=== PATIENT | male | born 1965 | race African-American/Black ===

== ENCOUNTER 2016-08-20 16:51 | Inpatient (IN) | payer OTHER, MEDICARE ==
[~2016-08-20] VITALS: Ht 172.7 cm; Wt 76.3 kg
--- NOTE | 2016-08-20 17:00 | NUR ---
PT STATES HE IS END STAGE RENAL DISEASE. PT REPORTS HAVING CHILLS YESTERDAY AT DIALYSIS STATES HE HAD A FEVER AND THEY GAVE HIM CANCO AND CEFTAZIMIME AND TOLD HIM THAT HE HAS SEPSIS AND SENT PT TO ED BLOOD CULTURES WHERE DRAWN THERE. PT HAS BKA AMPUTATIONS AND ON HIS LEFT STUMP HE HAS A LARGE BLISTER. PT STATES HE IS ALSO A IV HEROIN USER.
--- NOTE | 2016-08-20 17:46 | NUR ---
LABS DRAWN AND SENT BY THIS MST, BLUE, SSTX2,LAV, 2 SETS OF CULTURES, 2 SEPERATE STICKS
[2016-08-20 17:58] LABS: ABSOLUTE BASOPHIL COUNT 0 /CUMM (0.0-0.2); ABSOLUTE EOSINOPHIL COUNT 0.1 /CUMM (0.0-0.7); ABSOLUTE GRANULOCYTE CT 5.2 /CUMM (1.4-6.5); ABSOLUTE LYMPH COUNT 0.9 /CUMM (1.2-3.4); ABSOLUTE MONOCYTE COUNT 0.4 /CUMM (0.10-0.60); BASOPHIL % 0.4 % (0.0-2.0); EOSINOPHIL % 1.5 % (0-5); GRANULOCYTE % 78.8 % (42.2-75.2); HEMATOCRIT 29.5 % (42-52); MEAN CORPUSCULAR HGB 28.3 PG (27.0-31.0); MEAN PLATELET VOLUME 9.2 FL (7.4-10.4); PLATELET COUNT 174 /CUMM (130-400); RBC DISTRIBUTION WIDTH 15.7 % (11.5-14.5); RED BLOOD CELL CT 3.44 /CUMM (4.70-6.10); WHITE BLOOD CELL COUNT 6.7 /CUMM (4.8-10.8)
--- NOTE | 2016-08-20 18:22 | NUR ---
CRITICAL TEST RESULTS [id number] NOAH JAMES 50 M TESTS AND RESULTS: CR 6.3 Results received and read back by: JHONATHAN DENSON Results received date and time: 08/20/161827 The following provider was notified of the results, and read the results back: CARRIE ALVAREZ Notified date and time: 08/20/16 at 1828
--- NOTE | 2016-08-20 18:35 | ED INFLUENZA/URI COMPLAINT ---
History of Present Illness General Chief Complaint: General Adult Stated Complaint: PT HAS SWELLING IN BOTH LEGS Source: patient, family, old records Exam Limitations: no limitations Allergies Coded Allergies: No Known Allergies (08/20/16) Triage Note: PT STATES HE IS END STAGE RENAL DISEASE. PT REPORTS HAVING CHILLS YESTERDAY AT DIALYSIS STATES HE HAD A FEVER AND THEY GAVE HIM CANCO AND CEFTAZIMIME AND TOLD HIM THAT HE HAS SEPSIS AND SENT PT TO ED BLOOD CULTURES WHERE DRAWN THERE. PT HAS BKA AMPUTATIONS AND ON HIS LEFT STUMP HE HAS A LARGE BLISTER. Triage Nurses Notes Reviewed? yes HPI: 50-year-old male with end-stage renal disease on dialysis in [place] Wednesday, last dialysis was yesterday, here with complaints of possible sepsis. He was at dialysis yesterday and they told him he had a fever, she states they did blood cultures and told him there that he might have sepsis. They recommended he goes to the hospital, patient declined. He states he has a IV heroin problem. He did not get a call today stating that his blood cultures were positive. He usually goes to [facility] where he gets his dialysis as well but he states that he is tired of going to that facility as he has had multiple admissions there. 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 He has a cough with production. He denies any skin surface changes or rashes. He has severe pain to his bilateral stump sites left greater than right and has small amount of swelling to the left stump site. He denies any vomiting. He went through his dialysis treatment yesterday and is scheduled for dialysis tomorrow again. Patient states that while at dialysis he received vancomycin and ceftaziedime IV (JHONATHAN HASSAN) Vital Signs & Intake/Output Vital Signs & Intake/Output Vital Signs Date Time Temp Pulse Resp B/P Pulse O2 O2 Flow FiO2 Ox Delivery Rate 08/21 0645 98.9 79 20 152/70 96 Room Air 08/21 0000 97 Room Air 08/20 2326 99.7 91 20 150/60 92 Room Air 08/20 2253 Room Air 08/20 1956 99.2 87 20 160/72 97 Room Air 08/20 1702 97.9 92 16 182/90 95 Room Air ED Intake and Output 08/21 0000 03/23 1200 Intake Total Output Total Balance Patient 185 lb Weight Reconcile Medications Amlodipine Besylate 10 MG TABLET 1 TAB PO DAILY BP (Reported) Atorvastatin Calcium 10 MG TABLET 1 TAB PO DAILY CHOLESTEROL (Reported) Calcium Acetate 667 MG TABLET 2 TAB PO TID WM KIDNEYS (Reported) Carvedilol 25 MG TABLET 1 TAB PO BID HEART/BP (Reported) Clonidine HCl 0.1 MG TABLET 1 TAB PO BID BP (Reported) Insulin Glargine,Hum.rec.anlog (Lantus Solostar) 100 UNIT/ML (3 ML) INSULN.PEN 5 UNIT SC QHS DM (Reported) Insulin Lispro (Humalog Kwikpen U-100) (Unknown Strength) INSULN.PEN (Unknown Dose) SC TIDAC/HS DM (Reported) Melatonin 3 MG TABLET 2 TAB PO QHS SLEEP (Reported) Menthol (Bengay) 5 % GEL..GRAM. 1 GOOD TOP Q12H PRN BACK PAIN (Reported) Mirtazapine 15 MG TABLET 1 TAB PO QHS MENTAL HEALTH (Reported) Omeprazole 20 MG CAPSULE.DR 1 CAP PO BID GI (Reported) Ondansetron HCl 4 MG TABLET 1 TAB PO PRN N/V (Reported) Quetiapine Fumarate (Seroquel XR) 200 MG TAB.ER.24H 1 TAB PO QPM MENTAL HEALTH /SLEEP (Reported) [RENAPLEX D] 1 TAB PO DAILY SUPPLEMENT (Reported) (JOSE PRAKASH MD) Past History Travel History Traveled to [place] past 21 day No Medical History Any Pertinent Medical History? see below for history Renal: END STAGE RENAL Musculoskeletal: bILATERAL LOWER EXTREMITY AMPUTEE, BELOW THE KNEE Endocrine: diabetes Blood Disorders: IRON DEF. ANEMIA Surgical History Surgical History: BILATERAL bka Psychosocial History What is your primary language Albanian Tobacco Use: Current Daily Use Daily Tobacco Use Amount/Type: => 5 Cigarettes daily ETOH Use: denies use Illicit Drug Use: heroin (JHONATHAN HASSAN) Family History Hx Contributory? No (JOSE PRAKASH MD) Review of Systems Review of Systems Constitutional: Reports: see HPI. EENTM: Reports: no symptoms. Respiratory: Reports: see HPI. Cardiovascular: Reports: no symptoms. GI: Reports: no symptoms. Genitourinary: Reports: no symptoms. Musculoskeletal: Reports: no symptoms. Skin: Reports: no symptoms. Neurological/Psychological: Reports: no symptoms. Hematologic/Endocrine: Reports: no symptoms. Immunologic/Allergic: Reports: no symptoms. All Other Systems: Reviewed and Negative (JHONATHAN HASSAN) Physical Exam Physical Exam Ears, Nose, Throat: LEFT EYE CHRONIC ABNORMALITY Comments: Chronically ill-appearing man HEENT: Nose is atraumatic. Dry mucous membranes Pharynx normal. No swelling or edema. Neck: Supple, no lymphadenopathy, normal range of motion without pain or tenderness Back: Nontender, no CVA tenderness. Full range of motion Cardiovascular: Regular rate and rhythms , positive systolic murmur murmurs, mildly elevated JVP Respiratory: Chest nontender. No respiratory distress. Crackles noted left base and lower lung Abdomen: Soft, nontender nondistended, no appreciable organomegaly. Normal bowel sounds. No ascites Sacral region without abscess or infection or skin breakdown Left upper extremity fistula site without signs of infection Extremity: No edema, bilateral lower extremity amputee, small amount of bursal swelling to the left distal pretibial region, no erythema. No signs of skin breakdown to the bilateral lower extremities. Neuro: Alert oriented x3, motor sensory normal, cranial nerves II through XII grossly intact. Skin: No appreciable rash on exposed skin, skin is warm and dry. Psych: Mood and affect is normal, memory and judgment is normal. (JHONATHAN HASSAN) Core Measures Severe Sepsis Present: No Septic Shock Present: No (JOSE PRAKASH MD) Progress Differential Diagnosis: influenza, meningitis, neutropenia, otitis, pneumonia, pharyngitis, sinusitis Initial ED EKG: NSR, rate (90), LVH, nonspecific ST T wave chg, abnormal Q waves Repeat EKG: unchanged Rhythm Strip: normal sinus rhythm (90 bpm) Comments: Concern for pneumonia given patient's cough and crackles at the left lower lung. We'll obtain chest x-ray and labs, blood cultures. Chest x-ray shows left lower lobe pneumonia. We'll give him vancomycin and Fortaz IV and admitted to the hospital. Also given Dilaudid IV for his chronic pain. Patient with abnormal EKG, we'll repeat an add on a troponin. Patient to be admitted to the hospitalist service. Discussed with Dr. prakash (JHONATHAN HASSAN) Plan of Care: Orders Procedure Date/time Status Consistent Carbohydrate 3 08/21 B Active EKG 08/21 2300 Active TROPONIN LEVEL 08/21 1030 Active EKG 08/21 1030 Active RAPID VIRAL INFLUENZA A 08/21 0851 Active STREP PNEUMO URINARY ANTIGEN 08/21 0732 Active LEGIONELLA URINARY ANTIGEN 08/21 0732 Active URINE DRUGS OF ABUSE 08/21 0732 Active CULTURE,URINE 08/21 0729 Active URINALYSIS 08/21 0729 Active PROTHROMBIN TIME 08/21 0729 Active VANCOMYCIN (VANCOCIN) LEVEL 08/21 0600 Complete CBC WITHOUT DIFFERENTIAL 08/21 0600 Complete BASIC ELECTROLYTES PLUS BUN&CR 08/21 0600 Complete TROPONIN LEVEL 08/21 0430 Complete EKG 08/21 0418 Active Weight 08/21 0118 Active PSYCHIATRIC CONSULT 08/21 UNK Active LOWER RESPIRATORY CULTURE 08/20 2351 Active Hemo-Dialysis 08/20 2343 Active LACTIC ACID 08/20 2338 Complete Vital Signs 08/20 2243 Active Teach/Educate 08/20 224 Active Pain Treatment and Response 08/20 2242 Active Nutritional Intake, Monitor 08/20 2242 Active Isolation 08/20 2242 Active Intake & Output 08/20 2242 Active Patient Care Conference 08/20 2242 Active Activity/Ambulation 08/20 2242 Active Saline Lock 08/20 214 Active Pathway - chart 08/20 214 Active House Staff 08/20 214 Active Intake & Output 08/20 204 Active OXYGEN SETUP (GEN) 08/20 2030 Active Saline Lock 08/20 2030 Active Admit to inpatient 08/20 203 Active Vital Signs 08/20 203 Active Activity/Ambulation 08/20 2030 Active Code Status 08/20 2030 Active Patient Data 08/20 2025 Active Add-on Test (ER Only) 08/20 1923 Active EKG 08/20 1922 Active Add-on Test (ER Only) 08/20 1831 Active EKG 08/20 1831 Active TROPONIN LEVEL 08/20 1739 Complete HIV (Reflex to HIVCQ) 08/20 1739 Complete HEPATITIS PANEL 08/20 1739 Complete GLYCOSYLATED HGB 08/20 1739 Complete WESTERGREN SED RATE 08/20 1739 Complete B-TYPE NATRIURETIC PEP (BNP) 08/20 1714 Complete BLOOD CULTURE 08/20 1712 Active COMPREHENSIVE METABOLIC PANEL 08/20 1712 Complete CBC WITHOUT DIFFERENTIAL 08/20 171 Complete Lab Add-on Test 08/20 UNK Active FingerStick- Glucose 08/20 UNK Active Current Medications Sig/Malu Start time Last Medication Dose Stop Time Status Admin Insulin Aspart 0 AT BEDTIME 08/21 2200 AC (NovoLOG) Ceftazidime 1,000 MG 2100 08/21 2100 AC (Fortaz) Atorvastatin Calcium 10 MG 1700 08/21 1700 AC (Lipitor) Vancomycin HCl 500 MG ONCE ONE 08/21 1700 AC (Vanco/Hemodialysis) 08/21 1759 Dextrose/Water 250 ML (D5W) Calcium Acetate 667 MG WM 08/21 1200 AC (PhosLo) Insulin Aspart 0 TIDAC 08/21 1200 AC (NovoLOG) Epoetin Antonio 6,000 UNIT MoWeFr PRN 08/21 1115 AC (Epogen Inj 3000 (DIALYSIS PATIENTS) Multivitamins 1 TAB DAILY 08/21 1009 AC (Nephrocaps) Vancomycin HCl 1,000 MG DAILY 08/21 1000 CAN Dextrose/Water 250 ML (D5W) Vancomycin HCl 1,000 MG DAILY 08/21 1000 CAN Dextrose/Water 250 ML (D5W) Insulin Aspart 0 TIDAC 08/21 0800 CAN (NovoLOG) Ondansetron HCl 4 MG Q6P PRN 08/20 2345 AC (Zofran) Vancomycin HCl 0 Wednesday .. 08/20 2315 AC (Vanco/Hemodialysis) Acetaminophen 650 MG Q6P PRN 08/20 2145 AC (Tylenol) Laboratory Tests 08/21/16 1124: Troponin I Pending, PT Pending, INR Pending 08/21/16 0625: CBC w Diff NO MAN DIFF REQ, RBC 3.14 L, MCV 86.9, MCH 28.7, RDW 16.0 H, MPV 9.8, Gran % 72.8, Lymphocytes % 17.5 L, Monocytes % 7.9, Eosinophils % 1.3, Basophils % 0.5, Absolute Granulocytes 4.7, Absolute Lymphocytes 1.1 L, Absolute Monocytes 0.5, Absolute Eosinophils 0.1, Absolute Basophils 0, PUBS MCHC 33.0 08/21/16 0435: Troponin I 0.04 08/21/16 0435: Anion Gap 10, Estimated GFR 9 L, BUN/Creatinine Ratio 3.8 L, Random Vancomycin 19.3 08/21/16 0018: Lactic Acid 1.3 08/20/16 1739: Txm-W-Ykoxzffples Pept 35411 H 08/20/16 1739: Anion Gap 13, Estimated GFR 9 L, BUN/Creatinine Ratio 3.3 L, Glucose 209 H, Hemoglobin A1c 10.3 H, Calcium 8.8, Total Bilirubin 0.6, AST 24, ALT 32, Alkaline Phosphatase 127 H, Troponin I 0.03, Total Protein 6.7, Albumin 3.6, Globulin 3.1, Albumin/Globulin Ratio 1.2, CBC w Diff NO MAN DIFF REQ, RBC 3.44 L, MCV 86.0, MCH 28.3, RDW 15.7 H, MPV 9.2, Gran % 78.8 H, Lymphocytes % 13.3 L, Monocytes % 6.0, Eosinophils % 1.5, Basophils % 0.4, Absolute Granulocytes 5.2, Absolute Lymphocytes 0.9 L, Absolute Monocytes 0.4, Absolute Eosinophils 0.1, Absolute Basophils 0, PUBS MCHC 33.0, ESR Westergren 66 H, Hepatitis A IgM Ab NONREACTIVE, Hep Bs Antigen NONREACTIVE, Hep B Core IgM Ab Conf NONREACTIVE, Hepatitis C Antibody NONREACTIVE, HIV 1&2 Ab Western Blot NONREACTIVE Microbiology 08/21 0903 NASOPHARYN: Influenza Virus A & B Rapid Smear - RECD 08/21 0732 URINE ROUT: Legionella Antigen - COLB 08/21 0732 URINE ROUT: Streptococcus pneumoniae Antigen (M - COLB 08/21 0729 URINE ROUT: Urine Culture - COLB 08/20 2351 LOWER RESP: Respiratory Culture - ORD 08/20 2351 LOWER RESP: Gram Stain - ORD 08/20 1739 BLOOD: Blood Culture - RECD 08/20 172 BLOOD: Blood Culture - RECD Departure Departure Disposition: STILL A PATIENT Condition: Stable Clinical Impression Primary Impression: Pneumonia Secondary Impressions: Abnormal EKG Chronic pain Qualifiers: Chronic pain type: chronic pain syndrome Qualified Code: G89.4 - Chronic pain syndrome CRI (chronic renal insufficiency) Qualifiers: Chronic kidney disease stage: unspecified stage Qualified Code: N18.9 - Chronic kidney disease, unspecified Heroin addiction Referrals: PATIENT HAS NO PRIMARY CARE DR (PCP/Family) Departure Forms: Customer Survey General Discharge Information Admission Note Spoke With: JUSTINE ANDINO,[facility] Documentation of Exam: Documentation of any treatments & extenuating circumstances including Concerns Regarding Discharge (functional status, medication knowledge or non-compliance, living conditions, etc.) that warrant an admission rather than observation: Dialysis patient end-stage renal disease with diabetes, here with left lower lobe pneumonia. Requires IV antibiotics and close monitoring. He is a poor candidate for outpatient treatment due to his significant comorbidities. He will require dialysis tomorrow as well (KIM BUTLER,JHONATHAN) PA/CHEMICAL LABORATORY CHIEF Co-Sign Statement Statement: ED Attending supervision documentation- x I saw and evaluated the patient. I have also reviewed all the pertinent lab results and diagnostic results. I agree with the findings and the plan of care as documented in the PA's/CHEMICAL LABORATORY CHIEF's documentation. [] I have reviewed the ED Record and agree with the PA's/CHEMICAL LABORATORY CHIEF's documentation. [] Additions or exceptions (if any) to the PAs/CHEMICAL LABORATORY CHIEF's note and plan are summarized below: [] (DWAIN ANDINO,JOSE)
--- NOTE | 2016-08-20 19:21 | RADIOLOGY REPORT ---
EXAMINATION: XR PORTABLE CHEST CLINICAL INFORMATION: Cough, fever COMPARISON: None TECHNIQUE: Portable frontal view of the chest was obtained. FINDINGS: There is rotation toward the right. There is tortuosity aorta. Cardiac size anita and vasculature are within normal limits. There is a patchy density at the left base with slight elevation of the left hemidiaphragm. There is no consolidation in the right lung or left upper lung. There is some left apical thickening. There is no pneumothorax or pleural fluid. IMPRESSION: Patchy left base density could represent pneumonia or atelectasis.
[2016-08-20] MEDS ORDERED: RENAPLEX D PO (19:27)
[2016-08-20] MEDS ORDERED: AMLODIPINE BESY10 M1 PO (20:06)
[2016-08-20] MEDS ORDERED: OMEPRAZOLE20 M2 PO (20:07)
[2016-08-20] MEDS ORDERED: ATORVASTATIN CA10 M1 PO (20:07)
[2016-08-20] MEDS ORDERED: CALCIUM ACETAT667 M2 PO (20:07)
[2016-08-20] MEDS ORDERED: MIRTAZAPINE15 M2 PO (20:08)
[2016-08-20] MEDS ORDERED: SEROQUEL XR200 M1 PO (20:08)
[2016-08-20] MEDS ORDERED: CARVEDILOL25 M1 PO (20:09)
[2016-08-20] MEDS ORDERED: CLONIDINE HCL0.1 MG PO (20:09)
[2016-08-20] MEDS ORDERED: LANTUS SOL100 UNIT/1 SC (20:10)
[2016-08-20] MEDS ORDERED: MELATONIN3 M4 PO (20:11)
[2016-08-20] MEDS ORDERED: BENGAY113 GM TOP (20:12)
[2016-08-20] MEDS ORDERED: ONDANSETRON HCL4 MG PO (20:14)
[2016-08-20] MEDS ORDERED: HUMALOG KW100 UNIT/1 SC (20:14)
--- NOTE | 2016-08-20 20:42 | History & Physical ---
JANICE ANDINO,JUNITOCandi 08/20/162041: General Information and HPI MD Statement: I have seen and personally examined MAGUI JAMES and documented this H&P. The patient is a 50 year old M who presented with a patient stated chief complaint of [fever and chills. Source of Information: patient, W10 Exam Limitations: no limitations History of Present Illness: This is a 50 yo male past medical history significant for ESRD, bilateral BKA secondary to diabetic complication, hyperlipidemia, hypertension, who comes in for chief complaint of fevers and chills. Patient states that he was at his routine dialysis appointment at [facility] in [place] yesterday when he was noted to have a fever up to 102 with chills. The dialysis center obtained blood cultures , administered 1 dose of vancomycin and ceftaz. They suggested that patient go to hospital for further evaluation. He declined but felt worse this morning and came to [facility]. Denies any headache, change in vision, sore throat, shortness of breath, chest pain, palpitation, diarrhea, or constipation. He does endorse some fever, cough-at times productive with green sputum, nausea, baseline anuria, and recent rash on buttock. He states the cough has been present for several weeks. He denies any other recent illness or sick contacts. He does state that about 3 months ago he was seen at [place] for drainage of an abscess on his buttock. He has noticed a cyst growing on left stump secondary to prosthesis irritation over the past six months. Patient denies use of any IV drugs but does snort heroin on a daily basis. Last use of heroin yesterday. Additionally he is a smoker, denies alcohol use. He has been seen at [place] several times for heroin withdrawal and detox. Note ALL previous visits at [place], this is his first time at [place]. Patient states that around two weeks ago he required fistulogram for problem with dialysis access. He states he had no problems with dialysis yesterday. Further details unclear at present. Allergies/Medications Allergies: Coded Allergies: No Known Allergies (08/20/16) Home Med list Amlodipine Besylate 10 MG TABLET 1 TAB PO DAILY BP (Reported) Atorvastatin Calcium 10 MG TABLET 1 TAB PO DAILY CHOLESTEROL (Reported) Calcium Acetate 667 MG TABLET 2 TAB PO TID WM KIDNEYS (Reported) Carvedilol 25 MG TABLET 1 TAB PO BID HEART/BP (Reported) Clonidine HCl 0.1 MG TABLET 1 TAB PO BID BP (Reported) Insulin Glargine,Hum.rec.anlog (Lantus Solostar) 100 UNIT/ML (3 ML) INSULN.PEN 5 UNIT SC QHS DM (Reported) Insulin Lispro (Humalog Kwikpen U-100) (Unknown Strength) INSULN.PEN (Unknown Dose) SC TIDAC/HS DM (Reported) Melatonin 3 MG TABLET 2 TAB PO QHS SLEEP (Reported) Menthol (Bengay) 5 % GEL..GRAM. 1 GOOD TOP Q12H PRN BACK PAIN (Reported) Mirtazapine 15 MG TABLET 1 TAB PO QHS MENTAL HEALTH (Reported) Omeprazole 20 MG CAPSULE.DR 1 CAP PO BID GI (Reported) Ondansetron HCl 4 MG TABLET 1 TAB PO PRN N/V (Reported) Quetiapine Fumarate (Seroquel XR) 200 MG TAB.ER.24H 1 TAB PO QPM MENTAL HEALTH /SLEEP (Reported) [RENAPLEX D] 1 TAB PO DAILY SUPPLEMENT (Reported) Compliance With Home Meds: UNKNOWN Past History Travel History Traveled to [place] past 21 day No Medical History Renal: END STAGE RENAL Musculoskeletal: bILATERAL LOWER EXTREMITY AMPUTEE, BELOW THE KNEE Endocrine: diabetes Blood Disorders: IRON DEF. ANEMIA Surgical History Surgical History: BILATERAL bka Past Family/Social History Psychosocial History Smoking Status: Current Everyday Smoker ETOH Use: denies use Illicit Drug Use: heroin Functional Ability ADLs Independent: dressing, eating, toileting, bathing. Ambulation: prosthesis IADLs Independent: shopping, housework, finances, food prep, telephone, transportation , medication admin. Review of Systems Review of Systems Constitutional: Reports: chills, fever, malaise, weakness. Denies: diaphoresis. EENTM: Reports: blurred vision, double vision. Denies: eye pain, ear pain, nasal pain, throat pain. Cardiovascular: Denies: chest pain, edema, palpitations, syncope. Respiratory: Reports: cough, sputum production. Denies: orthopnea, short of breath, wheezing. GI: Reports: no symptoms. Genitourinary: Reports: no symptoms. Musculoskeletal: Reports: joint pain, muscle pain. Skin: Reports: erythema, lesions. Exam & Diagnostic Data Last 24 Hrs of Vital Signs/I&O Vital Signs Date Time Temp Pulse Resp B/P Pulse O2 O2 Flow FiO2 Ox Delivery Rate 08/21 0000 97 Room Air 08/20 2327 99.7 91 20 150/60 92 Room Air 08/20 2253 Room Air 08/20 1957 99.2 87 20 160/72 97 Room Air 08/20 1702 97.9 92 16 182/90 95 Room Air Intake & Output 08/21 0800 08/21 0000 08/20 1600 Intake Total Output Total Balance Patient 83.915 kg Weight Physical Exam General Appearance Alert, Oriented X3, Cooperative, No Acute Distress Skin No Rashes HEENT Atraumatic, PERRLA, EOMI, R. eye with haziness likely cataracts. Neck Supple Cardiovascular Regular Rate, Normal S1, Normal S2, 2/6 murmur Lungs Clear to Auscultation, decreased air movement; no wheezes, rhonchi, no crackles. Abdomen Soft, No Tenderness Neurological Normal Speech, Cranial Nerves 3-12 NL Extremities No Clubbing, No Cyanosis, No Edema, Normal Pulses, LLE stump with 5cm cyst with chronic keratosis. Tender to palpation. No erythema, purulence or warmth noted., diminished thrill to palpation to fistula in l. arm, but thrill appreciated on auscultation. Last 24 Hrs of Labs/Arpit: Laboratory Tests 08/21/16 0018: Lactic Acid 1.3 08/20/16 1739: [place]evvw Pept 55383 H 08/20/16 1739: Anion Gap 13, Estimated GFR 9 L, BUN/Creatinine Ratio 3.3 L, Glucose 209 H, Hemoglobin A1c Pending, Calcium 8.8, Total Bilirubin 0.6, AST 24, ALT 32, Alkaline Phosphatase 127 H, Troponin I 0.03, Total Protein 6.7, Albumin 3.6, Globulin 3.1, Albumin/Globulin Ratio 1.2, CBC w Diff NO MAN DIFF REQ, RBC 3.44 L, MCV 86.0, MCH 28.3, RDW 15.7 H, MPV 9.2, Gran % 78.8 H, Lymphocytes % 13.3 L, Monocytes % 6.0, Eosinophils % 1.5, Basophils % 0.4, Absolute Granulocytes 5.2, Absolute Lymphocytes 0.9 L, Absolute Monocytes 0.4, Absolute Eosinophils 0.1, Absolute Basophils 0, PUBS MCHC 33.0, ESR Westergren 66 H, Hepatitis A IgM Ab Pending, Hep Bs Antigen Pending, Hep B Core IgM Ab Conf Pending, Hepatitis C Antibody Pending, HIV 1&2 Ab Western Blot NONREACTIVE Microbiology 08/20 2351 LOWER RESP: Respiratory Culture - ORD 08/20 2351 LOWER RESP: Gram Stain - ORD 08/20 173 BLOOD: Blood Culture - RECD 08/20 1728 BLOOD: Blood Culture - RECD Assessment/Plan Assessment: This is a 50 yo male w/ PMH of ESRD, bilat bka, resistant htn, hld, who presents with CC fever, chills and cough. He has hx notable for opioid addiction. ED work up shows Chest x-ray shows patchy L. density. Vitals: 99.2, 87, 20, 182/90, 95. CBC shows white count 6.7, hemoglobin 9.7, hematocrit 29.5. EKG shows T-wave inversion in anterolateral leads and some Q waves in 1-3 and aVF. No previous EKG for correlation. BUN 21, creatinine 6.3. PLAN: Fever and chills: Patient does not have any white count and hospital he has a temperature of 99.2. However he already received a dose of vancomycin and ceftaz edema yesterday. Denies any other symptoms other than cough. Chest x- ray shows patchy left density, suggestive of pneumonia. However, cannot rule out any other sources. Pt denies any IVDA, he does have a cat that has left several scratches in arm and chest. * Obtain results of blood culture drawn at [facility] in [place] prior to antibiotic administration * Vancomycin and ceftaz * Blood and sputum culture * [place] [facility] * Consider MRI EKG changes: Patient has some Q waves in 1-3 and aVF; T-wave inversions in anterolateral leads. First troponin negative. Continue to monitor to rule out ACS. * Troponin/EKG ESRD: * Nephro consult * Due for dialysis tomorrow * Renally dose all medications Opioid dependence: * Rapid methadone taper * Psych consult Diabetes: * Fingersticks * RIS S * Levemir * NovoLog sliding scale * Check A1c Full code Renal diet Chemical DVT prophylaxis As Ranked By This Provider Problem List: 1. Pneumonia 2. Heroin addiction 3. Abnormal EKG Core Measures/Miscellaneous Acute Coronary Syndrome ACS Diagnosis: No Cerebrovascular Accident CVA/TIA Diagnosis: No Congestive Heart Failure CHF Diagnosis: No Venous Thromboembolism VTE Risk Factors: Acute medical illness, Age > 40 [facility] prophylaxis d/t: No contraindications No VTE Pharm Prophylaxis d/t: No contraindications VTE Diagnosis: No VTE Type: NONE VTE Confirmed by (Test): NONE Severe Sepsis Severe Sepsis Present: No Septic Shock Septic Shock Present: No Miscellaneous Documentation Attending Case Discussed With: JUSTINE ANDINO,[facility] Primary Care Physician: PATIENT HAS NO PRIMARY CARE DR Patient sees these Specialists unknown Level of Patient Care: General Medicine JOYCELYN ANDINO,[facility] 08/20/16 2353: Resident Review Statement Resident Statement: examined this patient, discussed with commissioner of internal revenue, agreed with commissioner of internal revenue, discussed with family, reviewed EMR data (avail), discussed with nursing , discussed with case mgmt, reviewed images, amended to note Other Findings: Magui is a 50 year old black man with medical hx of end-stage renal disease on hemodialysis (Wednesday), AOCD & LAITH, 2* Hyperparathyroidism, type 2 diabetes, diabetic retinopathy, hx of diabetic ulcer and b/l BKAs, HLD, hx of opioid and opiate use (free bases; denies IVDA), hypertension, buttocks abscess s/p ID 2-3 months ago, tobacco smoker who presents with 2-3 days of malaise, and 24 hours of subjective chills. He was undergoing dialysis at [facility] when he was found to be febrile (TMAX 102*F), blood cx were drawn at dialysis center, and he was given Vancomycin & Ceftaz x 1. He was advised to get admitted at [facility] (where he gets all of his medical care) but he refused. Today he notes a temp of 101*F at home, continues to feel unwell and now seeking medical tx. He endorses a productive cough with green sputum for months now, and chronic intermittent chest discomfort that appears to be atypical/noncardiac, nausea without emesis. He also said he has a blister on the LLE stump. He recently had an arteriogram of his AV fistula because there was a distal occlusion. It was accessed more proximally for HD on WED. VS afebrile, BP 150/60, SaO2 92-97% RA. AAOx3. +S1/S2 RRR, Coarse and rhoncherous breathe sounds, +BSx4q Soft NT ND abdomen, B/L BKAs noted. There isn 't a blister on the LLE stump but there is a soft mass that appears to contain a fluid collection. Labs 9.7/29.5 MCV 86. Alk phos 127, BNP 42,700. EKG: TWI in anterolateral leads, pathologic Qwaves leads I,II,III,aVF Suspect sepsis, unknown source but possiblities include pneumonia, suspicious fluctuant mass on LLE stump. He is almost anuric, making small amounts of urine intermittently - we will try to get a culture. He also has TWIs and Qwave abnormalities in leads mentioned above but no symptoms at this time. He is an advanced diabetic which makes him prone to silent infarction. Additionally, this man is a smoker, and abuses opioides/opiates, but denies IVDA. 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 for QT prolongation Cont HD Nephrology consult Methadone 20mg x 1, with 20 percent per day as an inpatient Psych consultation Levemir 3U bid Novolog s/s covg Check Hba1c Obtain records from [facility] and [facility] Re: blood cx DVT ppx heparin FULL code JUSTINE ANDINO, [facility] 08/21/16 0025: Attending MD Review Statement Attending Statement Attending MD Statement: examined this patient, discuss w/resident/PA/CERTIFIED PROFESSIONAL CONTROLLER, agreed w/resident/PA/CERTIFIED PROFESSIONAL CONTROLLER Attending Assessment/Plan: 50 yo M smoker, with h/o ESRD on HD (M/W/F), anemia in chronic disease, HTN, T2DM with nephropathy, retinopathy and neuropathy, s/p bilateral BKAs for diabetic foot ulcers, ongoing heroin use (snorts, not IV), who gets most of his care at [facility], presents with productive cough, congestion and malaise. At dialysis yesterday (07/22), he was noted to have a fever of 102 with chills, blood cultures were drawn and IV Vanco-ceftaz was given, he was advised admission but he refused. Of note, about 2-3 months back he has had I and D done for a buttock abscess. VSS. Exam: dry mucous membranes, Chest left basilar rhonchi++, otherwise clear. Left arm AV fistula+. He has a chronic well circumscribed soft to firm swelling over anterior aspect of the left stump. Labs microcytic anemia, BUN/ creat 21/ 6.3, lactic acid normal, trop neg, proBNP 42,700. CXR: patchy left base density. EKG: SR, with TWI in V4-6, I, aVF (no old EKG to compare). 1. Left lower lobe pneumonia, likely HCAP (given recent multiple hospitalizations @ [place]). He is not in florid sepsis. GM admit, TRC nebs, panculture, urine legionella and strep Ag, continue IV ceftaz and dose vanco with dialysis, narrow abx based on response. Smoking cessation counseling, nicotine patch. Check urine tox screen (patient makes small amount of urine) and UA/UC. He has well circumscribed swelling over anterior aspect of left BKA stump. This does not look infected. Xray is not suspicious for osteomyelitis. Consider ultrasound of the stump to better assess this swelling/ collection. 2. Opiate abuse, requesting detox. Will do methadone taper, obtain Psych consult. 3. EKG changes, unclear if new (no EKG to compare). Serial EKG and troponin. Please obtain records from [facility], if no recent echo, consider doing an echo here. 4. ESRD on dialysis. Nephro consult for dialysis in AM. 5. T2DM. Accucheks, check HbA1c, lantus and novolog SS. 6. HTN. Ct. Amlodipine, carvedilol, clonidine. DVT ppx Hep SC. Full code.
--- NOTE | 2016-08-20 21:32 | NUR ---
PT BED ASSIGNMENT 224-2
--- NOTE | 2016-08-20 21:49 | NUR ---
MESSAGE LEFT WITH TRANSPORT.
--- NOTE | 2016-08-20 21:49 | NUR ---
REPORT TO WILMER ROBLES
--- NOTE | 2016-08-20 23:07 | NUR ---
PT ARRIVED TO FLOOR AT 2245 VIA STRETCHER FROM ER. PT A/V/OX3. ON RA. NO DISTRESS NOTED. +BS. BLOOD SUGAR 418. HOOP BENDER TANK NOTIFIED. PT C/O PAIN 01/07 TO L STUMP WHERE A BLISTER IS PRESENT. SKIN INTACT. VSS. TEMP 99.7. #24 TO RH FLUSHING EASILY. BKA. PT BROUGHT PROSTHETIC LEGS TO HOSPITAL & CANE. PT STATES HE IS IND AT HOME WITH PROSTHESES AND CANE. PT HAS HISTORY OF FALLS & SCORES FOR FALL RISK. FALL RISK BRACELT IN PLACE WELL SIGN. BED ALARM UNDER PT. PT INSTRUCTED TO CALL FOR HELP. PT ORIENTED TO ROOM, CALL PADILLA, & SURROUNDINGS. WILL CONTINUE TO MONITOR.
--- NOTE | 2016-08-20 23:20 | Admission Certification ---
Admission Certification Certification Statement - As attending physician, I certify that at the time of - admission, based on clinical presentation, severity of - symptoms, need for further diagnostic testing and - therapeutic interventions, and risk of adverse outcomes - without in-hospital treatment, in my clinical assessment, - this patient requires an acute hospital stay for a minimum - of two nights or longer. I have also considered psychsocial - factors such as support system, advanced age, financial - issues, cognitive issues, and failed out-patient treatments, - past re-admission history, safety of patient, and lack of - compliance as applicable. Specific rationale supporting this admission is: Left lower lobe pneumonia. Poorly controlled diabetes.
[2016-08-20 23:27] VITALS: BP 150/60
--- NOTE | 2016-08-20 23:30 | RADIOLOGY REPORT ---
EXAMINATION: XR KNEE, LEFT CLINICAL INFORMATION: Osteomyelitis versus abscess. Swelling left extremity status post below-knee amputation COMPARISON: None TECHNIQUE: Four views of the left knee. FINDINGS: Status post below-knee amputation. No focal bone lesion or periosteal reaction. No bone destruction. No air in the soft tissue. No radiographic evidence for osteomyelitis. There are surgical clips at the amputation site. There is vascular calcifications in the upper calf. IMPRESSION: Status post below-knee amputation. No radiographic evidence for osteomyelitis.
--- NOTE | 2016-08-21 | NUR ---
PT HAS LAC AV SHUNT. RESTRICTED ARM SIGN IN PLACE & WRISTBAND. WILL CONTINUE TO MONITOR.
--- NOTE | 2016-08-21 00:16 | NUR ---
PTS BLOOD GLUCOSE 418. WHEN THIS RN WENT TO ADMINISTER PTS NOVOLOG OF 10 UNITS PER SLIDING SCALE, PT STATED "I NEVER TAKE THAT MANY UNITS, YOU ARE TRYING TO OVERDOSE ME & PUT ME IN A COMA". PT EDUCATED THAT BLOOD GLUCOSE IS HIGH AND SHORT ACTING INSULIN IS NEEDED. PT AGREED TO TAKE THE 3 UNITS OF LEVEMIR PER EMAR. OFFSET MACHINE OPERATOR GENNA NOTIFIED. NOVOLOG HELD. PT REFUSED. WILL CONTINUE TO MONITOR.
--- NOTE | 2016-08-21 01:32 | NUR ---
IN REGARDING TO JUAREZ GUILLEN'S PREVIOUS NOTES: PATIENT WAS ASKED HOW MUCH INSULIN HE WOULD TAKE AT HOME FOR A BLOOD SUGAR OF 418. PATIENT LOOKED AT HIS SLIDING SCALE ON HIS PHONE AND IT SAID "9 UNITS." PATIENT THEREAFTER AGREED TO TAKE THE 10 UNITS OF INSULIN ORDERED BY MD. WILL CONTINUE TO CLOSELY MONITOR.
[2016-08-21 06:45] VITALS: BP 152/70
--- NOTE | 2016-08-21 07:19 | PN- Housestaff ---
See Addendum RAFAEL ANDINO,[facility] 08/21/16 0719: Subjective Follow-up For: -Healthcare associated pneumonia -End stage renal disease on dialysis -Diabetes mellitus -Hypertension Subjective: Patient was seen and examined this morning, patient reported productive cough that started 1 week ago, greenish sputum, denied blood, associated with chills, night sweats, denied fever. Patient also reported left side chest pain, aching in nature 12/07, not radiated to left arm or neck, not associated with shortness of breath or palpitation. Vital signs are stable, MAXIMUM TEMPERATURE 99.7, fasting blood glucose 102. No overnight events reported by the nurse or the patient. Today is due for hemodialysis. Review of Systems Constitutional: Reports: see HPI. Objective Last 24 Hrs of Vital Signs/I&O Vital Signs Date Time Temp Pulse Resp B/P Pulse O2 O2 Flow FiO2 Ox Delivery Rate 08/21 0645 98.9 79 20 152/70 96 Room Air 08/21 0000 97 Room Air 08/20 2327 99.7 91 20 150/60 92 Room Air 08/20 2253 Room Air 08/20 1957 99.2 87 20 160/72 97 Room Air 08/20 1702 97.9 92 16 182/90 95 Room Air Intake & Output 08/21 1600 08/21 0800 08/21 0000 Intake Total 660 Output Total Balance 660 Intake, Oral 660 Patient 83.915 kg Weight Physical Exam General Appearance: Alert, Oriented X3, Cooperative, No Acute Distress Skin: No Rashes, No Breakdown, No Significant Lesion HEENT: Atraumatic, PERRLA, EOMI, Mucous Membr. moist/pink Neck: Supple, No JVD Cardiovascular: Regular Rate, Normal S1, Normal S2, No Murmurs Lungs: bilateral diffuse ronchi , tenderness on palpation Abdomen: Normal Bowel Sounds, Soft, No Tenderness, No Masses Neurological: Normal Speech, Strength at 5/5 X4 Ext, Normal Tone, Sensation Intact, Cranial Nerves 3-12 NL, Reflexes 2+ Extremities: No Clubbing, No Cyanosis, No Edema, Normal Pulses Assessment/Plan Assessment: Mr. Doll is 50 year old male with past medical history significant for end- stage renal disease on dialysis, bilateral below knee amputation due to diabetic foot ulcers, hypertension, diabetes mellitus, hyperlipidemia, peripheral neuropathy, heroin abuse(sniffing, no IV) who presented on 08/20/16 with chief complaint of fever, chills, productive cough of green sputum. Chest x-ray 08/20/16 FINDINGS: There is tortuosity aorta. Cardiac size anita and vasculature are within normal limits. There is a patchy density at the left base with slight elevation of the left hemidiaphragm. There is no consolidation in the right lung or left upper lung. There is some left apical thickening. There is no pneumothorax or pleural fluid. IMPRESSION: Patchy left base density could represent pneumonia or atelectasis. Problem list #Healthcare associated pneumonia -Patient presented with history of fever and chills Fever and chills for the last 2 days, patient received a dose of ceftazidime and vancomycin after his dialysis on Saturday 08/[address] [facility] in [place], blood culture was obtained at that time that grew gram-positive cocci in cluster. -On admission MAXIMUM TEMPERATURE of 99.2, rest of vital signs are stable, white blood cell 6.7 -Chest x-ray is suggestive for pneumonia -Continue vancomycin and ceftaz with dialysis Day #3 -Follow-up blood culture -Follow up sputum culture pending receipt -Follow up urine Legionella and strep antigen pending receipt (patient makes very small amount of urine) -Follow up flu rapid test -Start Mucinex #Acute coronary disease -Patient reported left achy chest pain, not radiated to arm or neck, not associated with shortness of breath or palpitation -Fist EKG showed some Q waves changes -Repeated EKG and troponin are negative -Chest pain is reproducible mostly muscular in origin #ESRD on dialysis -Dialysis schedule Wednesday, Wednesday and Wednesday, last dialysis was Wednesday -Nephro consult was obtained, thanks for recommendation -Patient is for dialysis today -Continue Depakote and alpha 6000 unit with dialysis -Continue Nephrocaps 1 tab by mouth daily #Opioid dependence: -Patient reported history of heroin abuse daily sniffing, denied IV use -HIV negative -Hepatic panel negative -Rapid methadone taper, patient received 1 dose of methadone 20 mg at 12 AM 08/21 -Psych consult is still pending -Urine toxicology pending receipt -Nicotine patch 21 mg -Patient is on other psych medication, Seroquel 200 mg at bedtime, mirtazapine 15 mg at bedtime #Diabetes: -Continue Accu check -Medium dose sliding scale -Levemir 3 units twice a day #Hypertension and hyperlipidemia -Continue atorvastatin 10 mg by mouth daily -Continue clonidine 0.1 mg twice a day by mouth -Continue carvedilol 25 mg by mouth twice a day -Continue Norvasc sac 10 mg by mouth daily #GERD -Continue omeprazole 20 mg twice a day Code Full Diet Renal dialysis DVT prophylaxis heparin subcutaneous Consultation nephrology and psychiatric Problem List: 1. Pneumonia 2. End stage renal disease on dialysis 3. Opioid abuse Pain Ratin Pain Location: None Pain Goal: Pain 4 or less Pain Plan: Mild pain pathway Tomorrow's Labs & Rationales: None ESSIE ANDINO,FREDERIC 08/21/16 1124: Attending MD Review Statement Attending Statement Attending MD Statement: examined this patient, discuss w/resident/PA/NEW ACCOUNTS BANKING REPRESENTATIVE, agreed w/resident/PA/NEW ACCOUNTS BANKING REPRESENTATIVE, reviewed EMR data (avail), discussed with nursing, discussed with case mgmt, reviewed images Attending Assessment/Plan: 50-year-old male who gets all his care at [facility]. He has underlying hypertension, diabetes, nephropathy and neuropathy and has bilateral BKA's with a blister on the left stump. He also has ESRD on hemodialysis Wednesday, Wednesday , Wednesday and he is here with a fever chills and likely MRSA and/or gram-negative pneumonia. The flu swab was sent and is pending. We have him on Vanco and ceftaz to treat MRSA and gram negatives. He is on dialysis protocol so his next dose will be only after dialysis today. He admits to snorting heroin and we have him on by mouth methadone for the same. Psych is going to see him to help us out with that. He had uncontrolled diabetes when he came in and we have him on a insulin sliding scale with long-acting insulin and will closely follow up.
[2016-08-21 07:53] LABS: ABSOLUTE BASOPHIL COUNT 0 /CUMM (0.0-0.2); ABSOLUTE EOSINOPHIL COUNT 0.1 /CUMM (0.0-0.7); ABSOLUTE GRANULOCYTE CT 4.7 /CUMM (1.4-6.5); ABSOLUTE LYMPH COUNT 1.1 /CUMM (1.2-3.4); ABSOLUTE MONOCYTE COUNT 0.5 /CUMM (0.10-0.60); BASOPHIL % 0.5 % (0.0-2.0); EOSINOPHIL % 1.3 % (0-5); GRANULOCYTE % 72.8 % (42.2-75.2); HEMATOCRIT 27.3 % (42-52); MEAN CORPUSCULAR HGB 28.7 PG (27.0-31.0); MEAN CORPUSCULAR VOLUME 86.9 FL (80.0-94.0); MEAN PLATELET VOLUME 9.8 FL (7.4-10.4); PLATELET COUNT 156 /CUMM (130-400); RED BLOOD CELL CT 3.14 /CUMM (4.70-6.10); WHITE BLOOD CELL COUNT 6.4 /CUMM (4.8-10.8)
--- NOTE | 2016-08-21 09:15 | Cons- Nephrology ---
General Information and HPI Consulting Request Date of Consult: 08/21/16 Requested By: JUSTINE ANDINO,VINICIUS Reason for Consult: ESRD Source of Information: patient, old records Exam Limitations: no limitations History of Present Illness: 50 yr old AA male w mult med problems including DM, HTN, PVD s/p bilat BKAs, & ESRD on chronic HD admit last night w hx cough productive green sputum, fever, & L sided CP. Found L sided pulm infiltrate --> already covered w IV Vanco & Fortaz as outpt after last HD [facility] & continued here. intermediate smoker & c/o mild SOB. Vomited x 2-3 pre admit w/o diarrhea or abd pain. No preceding URI sx. Admits to nasal heroin but denies IV drug abuse. Has TAY AVG w/o recent issue. Allergies/Medications Allergies: Coded Allergies: No Known Allergies (08/20/16) Home Med List: Amlodipine Besylate 10 MG TABLET 1 TAB PO DAILY BP (Reported) Atorvastatin Calcium 10 MG TABLET 1 TAB PO DAILY CHOLESTEROL (Reported) Calcium Acetate 667 MG TABLET 2 TAB PO TID WM KIDNEYS (Reported) Carvedilol 25 MG TABLET 1 TAB PO BID HEART/BP (Reported) Clonidine HCl 0.1 MG TABLET 1 TAB PO BID BP (Reported) Insulin Glargine,Hum.rec.anlog (Lantus Solostar) 100 UNIT/ML (3 ML) INSULN.PEN 5 UNIT SC QHS DM (Reported) Insulin Lispro (Humalog Kwikpen U-100) (Unknown Strength) INSULN.PEN (Unknown Dose) SC TIDAC/HS DM (Reported) Melatonin 3 MG TABLET 2 TAB PO QHS SLEEP (Reported) Menthol (Bengay) 5 % GEL..GRAM. 1 OGOD TOP Q12H PRN BACK PAIN (Reported) Mirtazapine 15 MG TABLET 1 TAB PO QHS MENTAL HEALTH (Reported) Omeprazole 20 MG CAPSULE.DR 1 CAP PO BID GI (Reported) Ondansetron HCl 4 MG TABLET 1 TAB PO PRN N/V (Reported) Quetiapine Fumarate (Seroquel XR) 200 MG TAB.ER.24H 1 TAB PO QPM MENTAL HEALTH /SLEEP (Reported) [RENAPLEX D] 1 TAB PO DAILY SUPPLEMENT (Reported) Current Medications: Current Medications Sig/Malu Start time Last Medication Dose Route Stop Time Status Admin Acetaminophen 650 MG Q6P PRN 08/20 2145 AC PO Amlodipine Besylate 10 MG DAILY 08/21 1000 AC PO Atorvastatin Calcium 10 MG 1700 08/21 1700 AC PO Calcium Acetate 667 MG WM 08/21 1200 UNVr PO Carvedilol 25 MG BID 08/21 1000 AC PO Ceftazidime 1,000 MG 2100 08/21 2100 AC IV Ceftazidime 0 .STK-MED ONE 08/20 2005 DC .ROUTE Ceftazidime 500 MG ONCE ONE 08/20 1930 DC 08/20 IV 08/20 1930 2005 Clonidine 0.1 MG BID 08/21 1000 AC PO Heparin Sodium 5,000 UNIT Q8 08/20 2200 AC 08/21 (Porcine) SC 0506 Hydromorphone HCl 0 .STK-MED ONE 08/20 2004 DC .ROUTE Hydromorphone HCl 1 MG ONCE ONE 08/20 1930 DC 08/20 IV 08/20 1930 2005 Insulin Aspart 0 TIDAC 08/21 0800 DC SC Insulin Aspart 0 TIDAC 08/21 0800 CAN SC Insulin Aspart 0 TIDAC/HS 08/21 0800 DC SC Insulin Aspart 0 TIDAC/HS 08/21 0015 AC 08/21 SC 0027 Insulin Detemir 3 UNITS BID 08/20 2200 AC 08/21 SC 0009 Melatonin 6 MG AT BEDTIME 08/20 2345 AC 08/21 PO 0010 Methadone HCl 20 MG .STK-MED ONE 08/21 0002 DC PO 08/21 0003 Methadone HCl 20 MG ONCE ONE 08/20 2330 DC 08/21 PO 08/20 2331 0010 Mirtazapine 15 MG AT BEDTIME 08/20 2345 AC 08/21 PO 0022 Nicotine 21 MG DAILY 08/21 1000 AC TOP Omeprazole 20 MG .STK-MED ONE 08/21 0002 DC PO 08/21 0003 Omeprazole 20 MG 0700,1600 08/20 2334 AC 08/21 PO 0506 Ondansetron HCl 4 MG Q6P PRN 08/20 2345 AC IV Quetiapine Fumarate 200 MG AT BEDTIME 08/21 0015 AC 08/21 PO 0022 Vancomycin HCl 500 MG ONCE ONE 08/21 1700 AC Dextrose/Water 250 ML IV 08/21 1759 Vancomycin HCl 1,000 MG DAILY 08/21 1000 CAN Dextrose/Water 250 ML IV Vancomycin HCl 1,000 MG DAILY 08/21 1000 CAN Dextrose/Water 250 ML IV Vancomycin HCl 0 Wednesday .. 08/20 2315 IV Vancomycin HCl 0 .STK-MED ONE 08/20 2005 DC .ROUTE Vancomycin HCl 1,000 MG ONCE ONE 08/20 1929 DC 08/20 Dextrose/Water 250 ML IV 08/20 Review of Systems Review of Systems Constitutional: Reports: chills, fever. EENTM: Reports: no symptoms. Cardiovascular: Reports: chest pain. Respiratory: Reports: cough, short of breath, sputum production. GI: Reports: vomiting. Musculoskeletal: Reports: no symptoms. Neurological/Psychological: Reports: no symptoms. Hematologic/Endocrine: Reports: no symptoms. Immunologic/Allergic: Reports: no symptoms. All Other Systems: Reviewed and Negative Past History Travel History Traveled to [place] past 21 day No Medical History Blood Transfusion Hx: No Neurological: NONE EENT: NONE Cardiovascular: hypertension, hyperlipidemia, myocardial infarction Respiratory: NONE Gastrointestinal: GERD Hepatic: NONE Renal: END STAGE RENAL Musculoskeletal: bILATERAL LOWER EXTREMITY AMPUTEE, BELOW THE KNEE Psychiatric: anxiety, depression, IV drug abuse, substance abuse Endocrine: diabetes Blood Disorders: IRON DEF. 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 Home Smoking Status: Current Everyday Smoker ETOH Use: denies use Illicit Drug Use: heroin Functional Ability ADLs Independent: dressing, eating, toileting, bathing. Ambulation: prosthesis IADLs Independent: shopping, housework, finances, food prep, telephone, transportation , medication admin. Exam & Diagnostic Data Vital Signs and I&O Vital Signs Date Time Temp Pulse Resp B/P Pulse O2 O2 Flow FiO2 Ox Delivery Rate 08/21 0645 98.9 79 20 152/70 96 Room Air 08/21 0000 97 Room Air 08/20 2326 99.7 91 20 150/60 92 Room Air 08/203 Room Air 08/20 1956 99.2 87 20 160/72 97 Room Air 08/20 1702 97.9 92 16 182/90 95 Room Air Intake & Output 08/21 1600 08/21 0400 08/20 1600 08/20 0400 08/19 1600 08/19 0400 Intake Total 660 Output Total Balance 660 Intake, Oral 660 Patient 185 lb Weight Physical Exam General Appearance: well developed/nourished, no apparent distress, alert Head: atraumatic, normal appearance Ears, Nose, Throat: normal ENT inspection Neck: normal inspection, supple Respiratory: chest non-tender, no respiratory distress, quiet respiration, crackles (L base) Cardiovascular: regular rate/rhythm, friction rub (none heard) Gastrointestinal: soft, non-tender, no organomegaly Back: normal inspection Extremities: bilat BKA, TAY AVG + bruit - no infection Neurologic/Psych: no motor/sensory deficits, awake, alert, oriented x 3, mma fighter II- XII nml as tested Skin: intact, normal color, warm/dry Lymphatic: no anterior cervical quinton, no axillary adenopathy Results Pertinent Lab Results: Laboratory Tests 08/21 08/21 08/21 08/21 0625 0435 0435 0018 Chemistry Sodium (137 - 145 mmol/L) 135 L Potassium (3.5 - 5.1 mmol/L) 3.8 Chloride (98 - 107 mmol/L) 99 Carbon Dioxide (22 - 30 mmol/L) 27 Anion Gap (5 - 16) 10 BUN (9 - 20 mg/dL) 26 H Creatinine (0.7 - 1.2 mg/dL) 6.9 *H Estimated GFR (>60 ml/min) 9 L BUN/Creatinine Ratio (7 - 25 %) 3.8 L Lactic Acid (0.7 - 2.1 mmol/L) 1.3 Troponin I (<0.11 ng/ml) 0.04 Hematology CBC w Diff NO MAN DIFF REQ WBC (4.8 - 10.8 /CUMM) 6.4 RBC (4.70 - 6.10 /CUMM) 3.14 L Hgb (14.0 - 18.0 G/DL) 9.0 L Hct (42 - 52 %) 27.3 L MCV (80.0 - 94.0 FL) 86.9 MCH (27.0 - 31.0 PG) 28.7 RDW (11.5 - 14.5 %) 16.0 H Plt Count (130 - 400 /CUMM) 156 MPV (7.4 - 10.4 FL) 9.8 Gran % (42.2 - 75.2 %) 72.8 Lymphocytes % (20.5 - 51.1 %) 17.5 L Monocytes % (1.7 - 9.3 %) 7.9 Eosinophils % (0 - 5 %) 1.3 Basophils % (0.0 - 2.0 %) 0.5 Absolute Granulocytes (1.4 - 6.5 /CUMM) 4.7 Absolute Lymphocytes (1.2 - 3.4 /CUMM) 1.1 L Absolute Monocytes (0.10 - 0.60 /CUMM) 0.5 Absolute Eosinophils (0.0 - 0.7 /CUMM) 0.1 Absolute Basophils (0.0 - 0.2 /CUMM) 0 PUBS MCHC (33.0 - 37.0 G/DL) 33.0 Toxicology Random Vancomycin (ug/ml) 19.3 08/20 08/20 1739 1739 Chemistry Sodium (137 - 145 mmol/L) 138 Potassium (3.5 - 5.1 mmol/L) 3.9 Chloride (98 - 107 mmol/L) 97 L Carbon Dioxide (22 - 30 mmol/L) 28 Anion Gap (5 - 16) 13 BUN (9 - 20 mg/dL) 21 H Creatinine (0.7 - 1.2 mg/dL) 6.3 *H Estimated GFR (>60 ml/min) 9 L BUN/Creatinine Ratio (7 - 25 %) 3.3 L Glucose (65 - 99 mg/dL) 209 H Hemoglobin A1c (4.2 - 5.8 %) Pending Calcium (8.4 - 10.2 mg/dL) 8.8 Total Bilirubin (0.2 - 1.3 mg/dL) 0.6 AST (17 - 59 U/L) 24 ALT (21 - 72 U/L) 32 Alkaline Phosphatase (< 127 U/L) 127 H Troponin I (<0.11 ng/ml) 0.03 [id number] Pept (<125 pg/mL) 89101 H Total Protein (6.3 - 8.2 g/dL) 6.7 Albumin (3.5 - 5.0 g/dL) 3.6 Globulin (1.9 - 4.2 gm/dL) 3.1 Albumin/Globulin Ratio (1.1 - 2.2 %) 1.2 Hematology CBC w Diff NO MAN DIFF REQ WBC (4.8 - 10.8 /CUMM) 6.7 RBC (4.70 - 6.10 /CUMM) 3.44 L Hgb (14.0 - 18.0 G/DL) 9.7 L Hct (42 - 52 %) 29.5 L MCV (80.0 - 94.0 FL) 86.0 MCH (27.0 - 31.0 PG) 28.3 RDW (11.5 - 14.5 %) 15.7 H Plt Count (130 - 400 /CUMM) 174 MPV (7.4 - 10.4 FL) 9.2 Gran % (42.2 - 75.2 %) 78.8 H Lymphocytes % (20.5 - 51.1 %) 13.3 L Monocytes % (1.7 - 9.3 %) 6.0 Eosinophils % (0 - 5 %) 1.5 Basophils % (0.0 - 2.0 %) 0.4 Absolute Granulocytes (1.4 - 6.5 /CUMM) 5.2 Absolute Lymphocytes (1.2 - 3.4 /CUMM) 0.9 L Absolute Monocytes (0.10 - 0.60 /CUMM) 0.4 Absolute Eosinophils (0.0 - 0.7 /CUMM) 0.1 Absolute Basophils (0.0 - 0.2 /CUMM) 0 PUBS MCHC (33.0 - 37.0 G/DL) 33.0 ESR Westergren (0 - 10 MM) 66 H Serology Hepatitis A IgM Ab (NONREACTIVE) Pending Hep Bs Antigen (NONREACTIVE) Pending Hep B Core IgM Ab Conf (NONREACTIVE) Pending Hepatitis C Antibody (NONREACTIVE) Pending HIV 1&2 Ab Western Blot (NONREACTIVE) NONREACTIVE Imaging/Other Studies: XR PORTABLE CHEST CLINICAL INFORMATION: Cough, fever COMPARISON: None TECHNIQUE: Portable frontal view of the chest was obtained. FINDINGS: There is rotation toward the right. There is tortuosity aorta. Cardiac size anita and vasculature are within normal limits. There is a patchy density at the left base with slight elevation of the left hemidiaphragm. There is no consolidation in the right lung or left upper lung. There is some left apical thickening. There is no pneumothorax or pleural fluid. IMPRESSION: Patchy left base density could represent pneumonia or atelectasis. Assessment/Plan Assessment/Recommendations Assessment: 1. ESRD: due to presumed diabetic & HTN nephrosclerosis; last HD 2 days ago & will dialyze & UF today 2. Pneumonia: continue antibiotics; r/o influenza Recommendations: 1. HD today 2. EPO w HD 3. nephrovite 1 po qday 4. check ca & phos w HD
[2016-08-21 12:07] LABS: PT 10.7 SEC (9.4-12.5)
--- NOTE | 2016-08-21 13:17 | NUR ---
PATIENT OFF FLOOR FOR DIALYSIS AT 1120
--- NOTE | 2016-08-21 14:30 | Cons- Psychiatry ---
Psychiatric Consult Date of Consult: 08/21/16 Reason for Consult: "Drug addiction, heroin, methadone." History of Present Illness: Identifying Info: Patient is a 50-year old, , black male with a past medical history of ESRD, bilateral BKA (2012) secondary to diabetic complication , hyperlipidemia, hypertension, who presented to for fever and chills. Psych consult placed for opiate addiction. CC: "I'll take help for my drug problem." HPI: Patient reported resuming opiate use approximately 1 year ago due to stress related to medical complications. He reported his longest period of sobriety was from 2011 - 2015, and was unable to state the factors supporting his sobriety then. He reportedly uses 7 bags of heroin daily intranasally. He denies IVDU. He is a cigarette smoker of approximately 0.5PPD. He denies alcohol use or the use of other illicits. He did not elaborate on how he financially supports his drug use. He currently receives disability and is unemployed. He expressed dreams of returning to school to become a teacher, but expressed feeling overwhelmed by his medical problems, particularly HD, which serves as a barrier to reaching this goal. He also reported HD served as a barrier to him being admitted into a substance abuse rehab. Patient expressed motivation to pursue a dual diagnosis intensive outpatient program to manage mood symptoms of depression/anxiety and maintain sobriety. PMH: ESRD, bilateral BKA secondary to diabetic complication, hyperlipidemia, hypertension. Please see the H&P for a complete listing. Past Psych History: -Outpatient: [facility] "many years ago." -Inpatient: denies Family Psych History: Denies a known family history of psychiatric disorders. Substance History -Treatment: Multiple prior admissions to detoxs/rehabs ([facility], [facility], [facility] in [place]). Patient did not indicate dates of admissions. Family Substance History: Denies a known family history of substance abuse. Social: Patient is and lives with in [place], [place]. He is unemployed and on disability. He has 4 children and 2 step-children (he did not provide ages, but reported none currently live in his home). He is a HS graduate and attended 2 years of college where he studied business. Abuse/Trauma: Denies; however, pt had a bilateral BKA in 2012 which led to many lifestyle changes. Current Home Psychotropic Medications: Remeron 15mg at bedtime Seroquel 200mg at bedtime Mental Status Exam Presentation/Appearance: 50y/o black male who appears stated age; dressed casually; facial hair; wears cap on head. Orientation: x4 Sensorium: Awake and alert Eye contact: appropriate Affect: somewhat blunted but congruent with stated mood Mood: "mostly anxious" Depression: 10/07 Anxiety: 12/07 Thought Content: - Denies SI/HI, AH/VH, PI. States and also believes he will not kill himself or others. - Intermittent hopeless/helpless thoughts Thought Process: linear, organized, goal-directed Speech: normal in rate, tone and volume. Judgment: fair Insight: fair Cognition: grossly intact Memory: grossly intact Attention/Concentration: grossly intact Brief ROS Gait: not observed Sleep: variable Appetite: fair Energy: low-fair IADLs/ADLs: independent Allergies: Coded Allergies: No Known Allergies (08/20/16) Current Medications: Current Medications Sig/Malu Start time Last Medication Dose Route Stop Time Status Admin Acetaminophen 650 MG Q6P PRN 08/20 2145 AC PO Amlodipine Besylate 10 MG DAILY 08/21 1000 AC 08/21 PO 1037 Atorvastatin Calcium 10 MG 1700 08/21 1700 AC PO Calcium Acetate 667 MG WM 08/21 1200 AC PO Carvedilol 25 MG BID 08/21 1000 AC 08/21 PO 1037 Ceftazidime 1,000 MG 2100 08/21 2100 AC IV Ceftazidime 0 .STK-MED ONE 08/20 2005 DC .ROUTE Ceftazidime 500 MG ONCE ONE 08/20 1930 DC 08/20 IV 08/20 1930 2005 Clonidine 0.1 MG BID 08/21 1000 AC 08/21 PO 1037 Epoetin Antonio 6,000 UNIT MoWeFr PRN 08/21 1115 AC IV Heparin Sodium 5,000 UNIT Q8 08/20 2200 AC 08/21 (Porcine) SC 0506 Hydromorphone HCl 0 .STK-MED ONE 08/20 2004 DC .ROUTE Hydromorphone HCl 1 MG ONCE ONE 08/20 1930 DC 08/20 IV 08/20 Insulin Aspart 0 AT BEDTIME 08/21 2200 AC SC Insulin Aspart 0 TIDAC 08/21 1200 AC SC Insulin Aspart 0 TIDAC 08/21 0800 DC SC Insulin Aspart 0 TIDAC 08/21 0800 CAN SC Insulin Aspart 0 TIDAC/HS 08/21 0800 DC SC Insulin Aspart 0 TIDAC/HS 08/21 0015 DC 08/21 SC 0027 Insulin Detemir 3 UNITS BID 08/20 2200 AC 08/21 SC 1038 Melatonin 6 MG AT BEDTIME 08/20 2345 AC 08/21 PO 0010 Methadone HCl 20 MG .STK-MED ONE 08/21 0002 DC PO 08/21 0003 Methadone HCl 20 MG ONCE ONE 08/20 2330 DC 08/21 PO 08/20 2331 0010 Mirtazapine 15 MG AT BEDTIME 08/20 2345 AC 08/21 PO 0022 Multivitamins 1 TAB DAILY 08/21 1009 AC PO Nicotine 21 MG DAILY 08/21 1000 AC 08/21 TOP 1041 Omeprazole 20 MG .STK-MED ONE 08/21 0002 DC PO 08/21 0003 Omeprazole 20 MG 0700,1600 08/20 2334 AC 08/21 PO 0506 Ondansetron HCl 4 MG Q6P PRN 08/20 2345 AC IV Quetiapine Fumarate 200 MG AT BEDTIME 08/21 0015 AC 08/21 PO 0022 Vancomycin HCl 500 MG ONCE ONE 08/21 1700 AC Dextrose/Water 250 ML IV 08/21 1759 Vancomycin HCl 1,000 MG DAILY 08/21 1000 CAN Dextrose/Water 250 ML IV Vancomycin HCl 1,000 MG DAILY 08/21 1000 CAN Dextrose/Water 250 ML IV Vancomycin HCl 0 Wednesday .. 08/20 2315 AC IV Vancomycin HCl 0 .STK-MED ONE 08/20 2005 DC .ROUTE Vancomycin HCl 1,000 MG ONCE ONE 08/20 1930 DC 08/20 Dextrose/Water 250 ML IV 08/20 Past History Past Medical History Neurological: NONE EENT: NONE Cardiovascular: hypertension, hyperlipidemia, myocardial infarction Respiratory: NONE Gastrointestinal: GERD Hepatic: NONE Renal: END STAGE RENAL Musculoskeletal: bILATERAL LOWER EXTREMITY AMPUTEE, BELOW THE KNEE Psychiatric: anxiety, depression, IV drug abuse, substance abuse Endocrine: diabetes Blood Disorders: IRON DEF. 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 Past Surgical History Surgical History: BILATERAL bka Psychosocial History Strengths/Capabilities: supportive and friends motivated for intensive outpatient psychiatric treatment motivated for sobriety Physical Limitations (Interventions): bilateral BKA Assessment/Plan Lab Results: Laboratory Tests 08/21/16 1145: Calcium 8.2 L, Phosphorus 7.1 H, Albumin 2.9 L 08/21/16 1124: Troponin I 0.02, PT 10.7, INR 1.02 08/21/16 1020: Virus Culture Pending 08/21/16 0625: CBC w Diff NO MAN DIFF REQ, RBC 3.14 L, MCV 86.9, MCH 28.7, RDW 16.0 H, MPV 9.8, Gran % 72.8, Lymphocytes % 17.5 L, Monocytes % 7.9, Eosinophils % 1.3, Basophils % 0.5, Absolute Granulocytes 4.7, Absolute Lymphocytes 1.1 L, Absolute Monocytes 0.5, Absolute Eosinophils 0.1, Absolute Basophils 0, PUBS MCHC 33.0 08/21/16 0435: Troponin I 0.04 08/21/16 0435: Anion Gap 10, Estimated GFR 9 L, BUN/Creatinine Ratio 3.8 L, Random Vancomycin 19.3 08/21/16 0018: Lactic Acid 1.3 08/20/16 1739: [id number] Pept 59961 H 08/20/16 1739: Anion Gap 13, Estimated GFR 9 L, BUN/Creatinine Ratio 3.3 L, Glucose 209 H, Hemoglobin A1c 10.3 H, Calcium 8.8, Total Bilirubin 0.6, AST 24, ALT 32, Alkaline Phosphatase 127 H, Troponin I 0.03, Total Protein 6.7, Albumin 3.6, Globulin 3.1, Albumin/Globulin Ratio 1.2, CBC w Diff NO MAN DIFF REQ, RBC 3.44 L, MCV 86.0, MCH 28.3, RDW 15.7 H, MPV 9.2, Gran % 78.8 H, Lymphocytes % 13.3 L, Monocytes % 6.0, Eosinophils % 1.5, Basophils % 0.4, Absolute Granulocytes 5.2, Absolute Lymphocytes 0.9 L, Absolute Monocytes 0.4, Absolute Eosinophils 0.1, Absolute Basophils 0, PUBS MCHC 33.0, ESR Westergren 66 H, Hepatitis A IgM Ab NONREACTIVE, Hep Bs Antigen NONREACTIVE, Hep B Core IgM Ab Conf NONREACTIVE, Hepatitis C Antibody NONREACTIVE, HIV 1&2 Ab Western Blot NONREACTIVE Diffential Diagnosis: Unspecified depressive disorder Unspecified anxiety disorder Opioid use disorder, severe R/O substance-induced mood disorder Impression: 50-year old male with a longstanding history of anxiety, depression, and opiate dependence with a previous 4 year history of sobriety, who relapsed a year ago due to stressors related to his physical health. The patient appears treatment motivated but likely lacks the ability to remain sober without supports. The patient expresses a desire to follow-up with a dual diagnosis IOP in the [facility] as transportation is a barrier for him out [facility]. The patient was not agreeable to any medication changes at this time, however was agreeable to a methadone taper for opiate withdrawal. Provisional Treatment Plan: 1. Continue monitoring patient for symptoms of opiate withdrawal. 2. Recommend starting po methadone taper for opiate withdrawal as follows: - 20mg Q12H x 2 doses, then - 15mg Q12H x 2 doses, then, - 10mg Q12H x 2 doses, then - 5mg Q12H x 2 doses, then stop. 3. Continue Seroquel and Remeron as ordered. 4. Continue Clonidine as ordered for restlessness/jitteriness/anxiety. Recommend tapering down over the weekend if patient will not be discharged home on medication. 5. Recommend social work consult for assistance in identifying dual diagnosis intensive outpatient psychiatry programs in the [facility]; and to also assist patient in arranging an intake appointment. Thank you for including psychiatry in this case. We are signing off at this time. Please reconsult if further matters arise. Shila Vanessa, AURICULAR ACUPUNCTURIST Pager: [phone]
--- NOTE | 2016-08-21 15:58 | NUR ---
INFORMED BY TRANSLATOR AT THIS TIME THAT PT NEEDS TO BE IN AN ISOLATION ROOM FOR ?MRSA. PT MOVED TO 231
--- NOTE | 2016-08-21 16:27 | NUR ---
PT ARRIVED TO FLOOR AT THIS TIME FROM DIALYSIS. BP 102/60. DENIES DIZZINESS. BP LOW IN DIALYSIS PER REPORT ONLY ABLE TO REMOVE 1.9 L. LAST BP IN DIALYSIS 106/68. NO C/O AT THIS TIME. AWAITING TO VOID FOR URINE SAMPLE
--- NOTE | 2016-08-21 16:48 | NUR ---
PT ASKING WHY HE IS ON PRECAUTIONS NOW, WELL IF AND WHEN HE CAN GET DILAUDID AGAIN. NO CURRENT ORDER FOR DILAUDID AT THIS TIME PT RECIEVED METHADONE, C/O PAIN TO STUMPS AND ABDOMEN. SPIRITUAL CARE IN AT THIS TIME FOR PT. 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
[2016-08-21 16:52] VITALS: BP 102/60
--- NOTE | 2016-08-21 17:28 | Discharge Summary ---
See Addendum Visit Information Visit Dates Admission Date: 08/20/16 Discharge Date: 08/26/16 Hospital Course Course Attending Physician: CHASITY ANDINO,VINCENT Bowen Primary Care Physician: Dr. Ej Arellano [facility] Course: Mr. Doll is 50 year old male with past medical history significant for end- stage renal disease on dialysis, bilateral below knee amputation due to diabetic foot ulcers, hypertension, diabetes mellitus, hyperlipidemia, peripheral neuropathy, heroin abuse(sniffing, no IV) who presented on 08/20/16 with chief complaint of fever, chills, productive cough of green sputum. Patient was admitted to general medical floor for the following problems: #Healthcare associated pneumonia -On admission MAXIMUM TEMPERATURE of 99.2, rest of vital signs are stable, white blood cell 6.7 -Chest x-ray is suggestive for pneumonia -Patient presented with history of fever and chills Fever and chills for the last 2 days prior to admission, patient received a dose of ceftazidime and vancomycin after his dialysis on Saturday 08/19 at [facility] in [place], blood cultures was obtained at that time, one tube was positive for staphylococcal Warneri that represents contamination -We started broad-spectrum antibiotic coverage with vancomycin and ceftazidime that was narrowed to ceftriaxone, antibiotic was discontinued prior discharge given clinical improvement, no leukocytosis, patient maintained afebrile -For productive cough Mucinex 600mg PO Q12H -Blood culture was obtained in the hospital is negative -Urine Legionella and strep antigen were unobtainable -Flu rapid test and unobtainable, was sent out for PCR pending results -ID consultation was obtained, thanks for recommendation #Other source of infection -Patient reported history of left BKA stump cyst 34 that's painful although no signs of inflammation were appreciated -Left BKA stump ultrasound was obtained that revealed small fluid collection that reflect small hematoma or small organizing fluid collection/abscess -Ultrasound-guided needle aspiration was obtained, Gram stain didn't reveal any organism, culture and Gram stain are negative, patient reported symptomatic relief after aspiration, prior discharge fluid reaccumulate, patient was advised to do prothesis fitting session -Left arm hemodialysis fistula graft Doppler ultrasound was obtained, no sonographic findings that suggest active source of infection from the fistula -Patient had low-grade temps 99.8, chills, night sweats however no WBC since admission, the symptoms can be explained as opioid withdrawal symptoms -ID consultation was obtained, thanks for recommendation #Acute coronary disease -Patient reported left achy chest pain, not radiated to arm or neck, not associated with shortness of breath or palpitation -Fist EKG showed some Q waves changes -Repeated EKG and troponin are negative -Chest pain is reproducible mostly muscular in origin #ESRD on dialysis -Dialysis schedule Wednesday, Wednesday and Wednesday -Nephro consult was obtained, thanks for recommendation -Continue Depakote and alpha 6000 unit with dialysis -Continue Nephrocaps 1 tab by mouth daily -Continue calcium acetate 2 tabs before meals #Opioid dependence: -Patient reported history of heroin abuse daily sniffing, denied IV use -HIV negative -Hepatic panel negative -Rapid methadone taper, methadone 20 every 122 doses, 15 mg every 12 hours 2 doses, 10 mg every 12 hours 2 doses, 5 mg every 122 doses and then stop -Urine toxicology was unobtainable -Nicotine patch 21 mg -Patient is on other psych medication, Seroquel 200 mg at bedtime, mirtazapine 15 mg at bedtime, clonidine 0.1 mg twice a day by mouth -Psychiatric recommendation was obtained, thanks for the input -social worker delinquency prevention consultation was obtained, multiple [place] psych facilities were reviewed with the patient and to be his choice to choose one of them for follow- up #Diabetes: -Accu check -Medium dose sliding scale -Levemir 5 units twice a day #Hypertension and hyperlipidemia -Home medication atorvastatin 10 mg by mouth daily, carvedilol 25 mg by mouth twice a day , Norvasc sac 10 mg by mouth daily #GERD -Omeprazole 20 mg twice a day Code Full Diet carbohydrate 3 DVT prophylaxis heparin subcutaneous Consultation nephrology,psychiatric, ID, IR, social insurance specialist Imaging Chest x-ray 08/20/16 FINDINGS: There is tortuosity aorta. Cardiac size anita and vasculature are within normal limits. There is a patchy density at the left base with slight elevation of the left hemidiaphragm. There is no consolidation in the right lung or left upper lung. There is some left apical thickening. There is no pneumothorax or pleural fluid. IMPRESSION: Patchy left base density could represent pneumonia or atelectasis. Chest x-ray 08/24/16 IMPRESSION: Patchy left basilar opacity is suspicious for pneumonia in this clinical setting. This has increased from previous. Allergies: Coded Allergies: No Known Allergies (08/20/16) Disposition Summary Disposition Principal Diagnosis: Healthcare associated pneumonia Additional Diagnosis: End stage renal disease on dialysis Discharge Disposition: home health services Discharge Instructions General Discharge Information Code Status: Full Code Patient's Diet: Consistent carbohydrate 3 Patient refused renal dialysis diet Patient's Activity: As tolerated Follow-Up Instructions/Appts: -Please follow-up with your primary care physician within 1 week after discharge -Please continue hemodialysis on Wednesday, Wednesday and Wednesday -Please follow social insurance specialist recommendation for outpatient psychiatric follow-up Medications at Discharge Discharge Medications: Continue taking these medications: [RENAPLEX D] 1 Tablet ORAL DAILY Amlodipine Besylate (Amlodipine Besylate) 10 MG TABLET 1 Tablet ORAL DAILY Qty = 30 Comments: Last Taken: 08/25/16 Time: 10 AM Atorvastatin Calcium (Atorvastatin Calcium) 10 MG TABLET 1 Tablet ORAL DAILY Qty = 30 Comments: Last Taken: 08/25 Time: 5PM Omeprazole (Omeprazole) 20 MG CAPSULE.DR 1 Capsule ORAL TWICE DAILY Qty = 60 Comments: Last Taken: 08/25 Time: 5PM Mirtazapine (Mirtazapine) 15 MG TABLET 1 Tablet ORAL TAKE AT BEDTIME Qty = 30 Comments: Last Taken: 08/25/16 Time: 9PM Quetiapine Fumarate (Seroquel XR) 200 MG TAB.ER.24H 1 Tablet ORAL Every night Qty = 30 Comments: Last Taken:08/25 Time: 9PM Clonidine HCl (Clonidine HCl) 0.1 MG TABLET 1 Tablet ORAL TWICE DAILY Qty = 60 Comments: Last Taken: 08/25 Time: 9PM Carvedilol (Carvedilol) 25 MG TABLET 1 Tablet ORAL TWICE DAILY Qty = 60 Comments: Last Taken: 08/25/16 Time: 9PM Insulin Glargine,Hum.rec.anlog (Lantus Solostar) 100 UNIT/ML (3 ML) INSULN.PEN 5 Unit Inject into fatty tissue TAKE AT BEDTIME Qty = 15 Comments: RECEIVED LEVEMIR IN HOSPITAL LAST ON 08/25 PM Melatonin (Melatonin) 3 MG TABLET 2 Tablet ORAL TAKE AT BEDTIME Comments: Last Taken: 08/25/16 Time: 9PM Menthol (Bengay) 5 % GEL..GRAM. 1 Application On the skin Q12H as needed for BACK PAIN Ondansetron HCl (Ondansetron HCl) 4 MG TABLET 1 Tablet ORAL as needed for N/V Comments: NOT GIVEN IN HOSPITAL Insulin Lispro (Humalog Kwikpen U-100) (Unknown Strength) INSULN.PEN Unknown Dose Inject into fatty tissue BEFORE MEALS AND AT BEDTIME Comments: RECEIVED NOVOLOG IN [facility] LAST ON 08/25 9PM Start taking the following new medications: Epoetin Antonio (Procrit) 3,000 UNIT/ML VIAL 6,000 Unit INTRAVEN MoWeFr as needed for HEMODIALYSIS Qty = 60 No Refills Comments: GIVEN IN DIALYSIS Wednesdays AND FRIDAYS Guaifenesin (Guaifenesin ER) 600 MG TAB.ER.12H 600 Milligram ORAL EVERY 12 HOURS Qty = 12 No Refills Comments: Last Taken: 08/25/16 Time: 9PM Nephro-Vitamins (Nephro-Orlando Tablet) 0.8 MG TABLET 1 Tablet ORAL DAILY Qty = 30 No Refills Comments: Last Taken: 08/25 Time: 10 AM The following medications have been changed: Old: Calcium Acetate (Calcium Acetate) 667 MG TABLET 2 Tablet ORAL TID WM Qty = 180 New: Calcium Acetate (Calcium Acetate) 667 MG TABLET 2 Tablet ORAL 3 TIMES DAILY BEFORE MEALS Qty = 180 Comments: Last Taken: 08/26 Time: 3PM Copies To: MATT JUAN MD; SHITAL ANDINO,ANA Wright
[2016-08-21 22:39] VITALS: BP 136/70
[2016-08-22 06:57] VITALS: BP 118/70
--- NOTE | 2016-08-22 09:02 | PN- Att Addend ---
Attending Addendum Attending Brief Note Patient seen and examined. He says he has a lot of pain in his stump. I tried to explain to him at length that were already giving him a methadone taper for the opiate abuse and that giving him any opiate medications at this point would be counterproductive and have severe addictive potential. He didn't seem convinced. He is a 50-year-old -[place] male who has diabetes with microvascular complications, bilateral amputations and ESRD on hemodialysis. We contacted the [facility] dialysis center yesterday and his blood cultures drawn there when he was febrile are growing gram-positive cocci in clusters. We are treating him as a staph sepsis. He does have an opacity on chest x-ray so it could be a staph pneumonia. We have him on Vanco per dialysis protocol the repeat blood cultures here are negative so far. And an echo is pending. The flu swab was to mucousy and hence sent to the [facility] for PCR. And his dialysis schedule is Wednesday, Wednesday, Wednesday.
--- NOTE | 2016-08-22 09:08 | PN- Housestaff ---
Subjective Follow-up For: -Healthcare associated pneumonia -End stage renal disease on dialysis -Diabetes mellitus -Hypertension Subjective: Patient seen and examined. He is seen sitting upright in bed using his laptop. He appears to be in no acute distress. He admits to not feeling well today, complaining of a productive cough of green sputum and mild generalized body discomfort. He also reports discomfort on his left lower extremity where there is a "blister" that has been present for reportedly 4 weeks. He states that he had chills overnight and sweat through three shirts. Additionally he denies any blurred/double vision, lightheadedness/dizzyness, headache, chest pain, palpitations, shortness of breath, nausea, vomiting, diarrhea. No overnight events reported. Review of Systems Constitutional: Reports: see HPI. Objective Last 24 Hrs of Vital Signs/I&O Vital Signs Date Time Temp Pulse Resp B/P Pulse O2 O2 Flow FiO2 Ox Delivery Rate 08/22 0902 98.7 77 16 134/70 08/22 0902 98.7 77 16 134/70 08/22 0901 98.7 77 16 134/70 08/22 0657 98.4 72 16 118/70 96 Room Air 08/22 0000 96 Room Air 08/21 2239 99.0 90 20 136/70 96 Room Air 08/21 1652 98.1 78 20 102/60 93 Room Air Intake & Output 08/22 1600 08/22 0800 08/22 0000 Intake Total 200 Output Total 50 Balance 150 Intake, Oral 200 Output, Urine 50 Patient 76.005 kg Weight Physical Exam General Appearance: Alert, Oriented X3, Cooperative, No Acute Distress Other Physical Findings: General - well developed, well nourished middle aged man in no acute distress HEENT - NCAT, EOMI, PERRL, anicteric sclera CVS - S1, S2 w/o m/g/r Resp - decrease bibasilar airflow with scant right sided wheezing, no obvious crackles GI - Soft, mild left upper quadrant tenderness, nondistended, bowel sounds intact Neuro - Awake and Alert, CN II - XII grossly intact Ext - normal pulses, no cyanosis/clubbing/edema, bilaterall below knee amputation, 1.5" fluctuant nondraining mass on distal left stump Current Medications: Current Medications Sig/Malu Start time Last Medication Dose Route Stop Time Status Admin Acetaminophen 650 MG .STK-MED ONE 08/21 2057 DC PO 08/21 205 Acetaminophen 650 MG Q6P PRN 08/20 2145 AC 08/21 PO 2100 Amlodipine Besylate 10 MG DAILY 08/21 1000 AC 08/22 PO 0901 Atorvastatin Calcium 10 MG 1700 08/21 1700 AC 08/21 PO 1633 Calcium Acetate 667 MG WM 08/21 1200 AC 08/22 PO 0738 Carvedilol 25 MG BID 08/21 1000 AC 08/22 PO 0902 Ceftazidime 1,000 MG 2100 08/21 2100 CAN IV Clonidine 0.1 MG BID 08/21 1000 AC 08/22 PO 0902 Epoetin Antonio 6,000 UNIT MoWeFr PRN 08/21 1115 AC IV Guaifenesin 600 MG Q12 08/21 1447 AC 08/22 PO 0901 Heparin Sodium 5,000 UNIT Q8 08/20 2200 AC 08/22 (Porcine) SC 0640 Insulin Aspart 0 AT BEDTIME 08/21 2200 AC SC Insulin Aspart 0 TIDAC 08/21 1200 AC 08/22 SC 0740 Insulin Aspart 0 TIDAC/HS 08/21 0015 DC 08/21 SC 0027 Insulin Detemir 5 UNITS BID 08/22 2200 AC SC Insulin Detemir 3 UNITS BID 08/20 2200 DC 08/22 SC 0902 Melatonin 6 MG AT BEDTIME 08/20 2345 AC 08/21 PO 2202 Methadone HCl 5 MG BID 08/24 1000 AC PO Methadone HCl 10 MG BID 08/23 1000 AC PO 08/23 2201 Methadone HCl 15 MG BID 08/22 1000 AC 08/22 PO 08/22 2201 0902 Methadone HCl 20 MG ONCE ONE 08/21 2200 DC 08/21 PO 08/21 2200 2201 Methadone HCl 20 MG ONCE ONE 08/21 1630 DC 08/21 PO 08/21 1631 1633 Mirtazapine 15 MG AT BEDTIME 08/20 2345 AC 08/21 PO 2202 Multivitamins 1 TAB DAILY 08/21 1009 AC 08/22 PO 0901 Nicotine 21 MG DAILY 08/21 1000 AC 08/22 TOP 0900 Omeprazole 20 MG 0700,1600 08/20 2334 AC 08/22 PO 0640 Ondansetron HCl 4 MG Q6P PRN 08/20 2345 AC 08/22 IV 0839 Quetiapine Fumarate 200 MG AT BEDTIME 08/21 0015 AC 08/21 PO 2202 Vancomycin HCl 500 MG ONCE ONE 08/21 1700 DC 08/21 Dextrose/Water 250 ML IV 08/21 1759 1635 Vancomycin HCl 0 Wednesday .. 08/20 2315 AC IV Last 24 Hrs of Lab/Arpit Results Last 24 Hrs of Labs/Mics: Laboratory Tests 08/21/16 2300: Troponin I Cancelled 08/21/16 1145: Calcium 8.2 L, Phosphorus 7.1 H, Albumin 2.9 L 08/21/16 1124: Troponin I 0.02, PT 10.7, INR 1.02 Assessment/Plan Assessment: Patient continues to remain afebrile without leukocytosis while on intavenous antibiotics. He states that he does not feel well today without any new subjective complaints. He is requesting intravenous narcotics. Blood sugars remain elevated, levemir was increased to 5 units. Patient is furious that he is being maintained on a consistent carbohydrate diet, he reports eating "whatever he wants" at home as is requesting to be put on a regular diet free of any carbohydrate, sodium, or potassium restrictions. This was discussed with supervisor nutritional yeast whom recommended changing the diet to a regular diet so that glucose control may be optimized in the context of his actual diet that he adhears to. Echocardiogram is still pending. Blood cultures remain no growth to date. Influenza PCR result still pending. #Healthcare associated pneumonia -Patient presented with history of fever and chills Fever and chills for the last 2 days, patient received a dose of ceftazidime and vancomycin after his dialysis on Saturday 08/[address] [facility] in [place], blood culture was obtained at that time that grew gram-positive cocci in cluster. -On admission MAXIMUM TEMPERATURE of 99.2, rest of vital signs are stable, white blood cell 6.7 -Chest x-ray is suggestive for pneumonia -Continue vancomycin and ceftaz with dialysis Day #3 -Mucinex 600mg PO Q12H -Follow-up blood culture -Follow up sputum culture pending receipt -Follow up urine Legionella and strep antigen pending receipt (patient makes very small amount of urine) -Follow up flu rapid test #Acute coronary disease -Patient reported left achy chest pain, not radiated to arm or neck, not associated with shortness of breath or palpitation -Fist EKG showed some Q waves changes -Repeated EKG and troponin are negative -Chest pain is reproducible mostly muscular in origin #ESRD on dialysis -Dialysis schedule Wednesday, Wednesday and Wednesday, last dialysis was Wednesday -Nephro consult was obtained, thanks for recommendation -Patient is for dialysis today -Continue Depakote and alpha 6000 unit with dialysis -Continue Nephrocaps 1 tab by mouth daily #Opioid dependence: -Patient reported history of heroin abuse daily sniffing, denied IV use -HIV negative -Hepatic panel negative -Rapid methadone taper, patient received 1 dose of methadone 20 mg at 12 AM 08/21 -Psych consult is still pending -Urine toxicology pending receipt -Nicotine patch 21 mg -Patient is on other psych medication, Seroquel 200 mg at bedtime, mirtazapine 15 mg at bedtime #Diabetes: -Continue Accu check -Medium dose sliding scale -Levemir 3 units twice a day #Hypertension and hyperlipidemia -Continue atorvastatin 10 mg by mouth daily -Continue clonidine 0.1 mg twice a day by mouth -Continue carvedilol 25 mg by mouth twice a day -Continue Norvasc sac 10 mg by mouth daily #GERD -Continue omeprazole 20 mg twice a day Code Full Diet Renal dialysis DVT prophylaxis heparin subcutaneous Consultation nephrology and psychiatric Problem List: 1. Pneumonia 2. End stage renal disease on dialysis Pain Ratin Pain Location: Generalized Pain Goal: Remain pain free Pain Plan: See assessment Tomorrow's Labs & Rationales: CBC - bacteremia BEP - ESRD
[2016-08-22 14:47] VITALS: BP 120/70
--- NOTE | 2016-08-22 14:56 | Cons- Infect Disease ---
General Information and HPI Consulting Request Date of Consult: 08/22/16 Requested By: JUSTINE ANDINO,VINICIUS Reason for Consult: Positive blood cultures for gram-positive cocci Source of Information: patient History of Present Illness: This is a 50-year-old man who snorts cocaine but denies IV drug abuse, with a history of end-stage renal disease, maintained on hemodialysis via a left upper extremity graft, with intermittent problems with clotting, most recently 2 weeks prior to admission, at which time he underwent a fistulogram and subsequent removal of a clot, status post bilateral BKA's, with a four-month history of a swelling over the left stump, status post I&D of a right gluteal abscess approximately 3 months prior to admission, with a 1-2 week history of a cough, occasionally productive of green sputum, with mild left discomfort and shortness of breath, treated with Vancomycin and Ceftazidime at dialysis ([facility]) 1 day prior to admission because of fevers and chills admitted on August 21 because of persistent fevers and chills and with the report of one positive blood culture for gram-positive cocci. On admission he was afebrile. Laboratory data revealed a white blood count of 7000, BUN/creatinine 21 and 6.3, alk phosphatase 127, INR 1.02. HIV was negative. Chest x-ray revealed a patchy density at the left base. X-ray of the left knee was negative. He was redosed with Vancomycin and Ceftazidime. On August 21 he underwent dialysis and was redosed with Vancomycin afterwards. He has remained afebrile since admission. He still notes intermittent chills and a cough, which is occasionally productive of green sputum. He also notes mild discomfort over the swelling over the left BKA stump. Allergies/Medications Allergies: Coded Allergies: No Known Allergies (08/20/16) Home Med List: Amlodipine Besylate 10 MG TABLET 1 TAB PO DAILY BP (Reported) Atorvastatin Calcium 10 MG TABLET 1 TAB PO DAILY CHOLESTEROL (Reported) Calcium Acetate 667 MG TABLET 2 TAB PO TID WM KIDNEYS (Reported) Carvedilol 25 MG TABLET 1 TAB PO BID HEART/BP (Reported) Clonidine HCl 0.1 MG TABLET 1 TAB PO BID BP (Reported) Insulin Glargine,Hum.rec.anlog (Lantus Solostar) 100 UNIT/ML (3 ML) INSULN.PEN 5 UNIT SC QHS DM (Reported) Insulin Lispro (Humalog Kwikpen U-100) (Unknown Strength) INSULN.PEN (Unknown Dose) SC TIDAC/HS DM (Reported) Melatonin 3 MG TABLET 2 TAB PO QHS SLEEP (Reported) Menthol (Bengay) 5 % GEL..GRAM. 1 GOOD TOP Q12H PRN BACK PAIN (Reported) Mirtazapine 15 MG TABLET 1 TAB PO QHS MENTAL HEALTH (Reported) Omeprazole 20 MG CAPSULE.DR 1 CAP PO BID GI (Reported) Ondansetron HCl 4 MG TABLET 1 TAB PO PRN N/V (Reported) Quetiapine Fumarate (Seroquel XR) 200 MG TAB.ER.24H 1 TAB PO QPM MENTAL HEALTH /SLEEP (Reported) [RENAPLEX D] 1 TAB PO DAILY SUPPLEMENT (Reported) Past History Travel History Traveled to [place] past 21 day No Medical History Blood Transfusion Hx: No Neurological: NONE EENT: NONE Cardiovascular: hypertension, hyperlipidemia, myocardial infarction Respiratory: NONE Gastrointestinal: GERD Hepatic: NONE Renal: END STAGE RENAL Psychiatric: anxiety, depression, IV drug abuse, substance abuse Endocrine: diabetes Blood Disorders: IRON DEF. 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 Home Smoking Status: Current Everyday Smoker ETOH Use: denies use Illicit Drug Use: heroin Functional Ability ADLs Independent: dressing, eating, toileting, bathing. Ambulation: prosthesis IADLs Independent: shopping, housework, finances, food prep, telephone, transportation , medication admin. Review of Systems Review of Systems All Other Systems: Reviewed and Negative Exam & Diagnostic Data Last 24 Hrs of Vital Signs/I&O Vital Signs Date Time Temp Pulse Resp B/P Pulse O2 O2 Flow FiO2 Ox Delivery Rate 08/22 1447 98.5 74 20 120/70 93 08/22 0902 98.7 77 16 134/70 08/22 0902 98.7 77 16 134/70 08/22 0901 98.7 77 16 134/70 08/22 0657 98.4 72 16 118/70 96 Room Air 08/22 0000 96 Room Air 08/21 2239 99.0 90 20 136/70 96 Room Air 08/21 1652 98.1 78 20 102/60 93 Room Air Intake & Output 08/22 1600 08/22 0800 08/22 0000 Intake Total 480 200 Output Total 25 50 Balance 455 150 Intake, Oral 480 200 Output, Urine 25 50 Patient 168 lb Weight Physical Exam Other Physical Findings: He is awake and alert in no acute distress. He is afebrile. Skin reveals scattered excoriations. HEENT exam is negative. Neck is supple with no adenopathy. Lungs crackles at the left base. Heart regular rhythm with no murmur. Abdomen is soft, nontender with positive bowel sounds. Back no CVA tenderness; right buttock healing lesion, with no erythema, drainage or tenderness. Extremities left upper extremity fistula, with bruit and thrill, with no erythema or tenderness on palpation; status post bilateral BKA's; fluctuant/rubbery mass over the left BKA stump, with no overlying erythema, mildly tender to palpation. Neuro is without focality. Last 24 Hours of Lab Results: Laboratory Tests 08/21 2300 Chemistry Troponin I Cancelled Last 24 Hours of Arpit Results: Blood cultures August 20 negative Diagnostic Data Recent Imaging Findings: Chest x-ray August 20, personally reviewed, reveals a patchy density at the left base with slight elevation of the left hemidiaphragm X-ray of the left knee August 20 negative Assessment/Plan Assessment/Plan Impression: This is a 50-year-old man, cocaine snorter, with a history of end-stage renal disease, maintained on hemodialysis via a left upper extremity graft, status post bilateral BKA's, with a four-month history of a swelling over the left BKA stump, status post recent intervention for a clot of the left upper extremity graft, admitted on August 21 with several days of fevers and chills, status post empiric treatment with Vancomycin and Ceftazidime on the day prior to admission, with the report of one positive blood culture for gram-positive cocci and found on chest x-ray to have a patchy density at the left lower lobe. Have contacted Maryann Mack, who reports that the positive blood culture was identified as "Staph species" and that the second culture was negative. This may represent a contaminant, though, with a graft in place and the recent intervention, an infected graft must be considered. He does have a left lower lobe density on chest x-ray and, given his symptoms of cough and chest discomfort, pneumonia seems a more likely explanation for his recent fevers. His dose of Vancomycin yesterday will provide gram-positive coverage until his next dialysis, but it may be reasonable to adjust his regimen. The left BKA stump swelling is of unclear etiology but further evaluation is indicated. His right buttock lesion does not appear to be a source of infection. Suggestion: 1. Follow-up final blood culture results from Maryann Mack 2. Discontinue Contact isolation 3. Ultrasound of the left upper extremity graft 4. Ultrasound of the left BKA stump, with further evaluation and management based on results 5. Urine for strep pneumo antigen and Legionella antigen if he produces urine 6. Consider need for further chest imaging (e.g. repeat chest x-ray or chest CT ) based on his symptoms 7. Begin Ceftriaxone 1 g IV every 24 hours 8. Obtain a random Vancomycin level on August 24 with dialysis, with further dosing based on above Consult Acknowledgment - Thank you for your consult request.
--- NOTE | 2016-08-22 19:36 | ULTRASOUND REPORT ---
EXAMINATION: US SUPERFICIAL IMAGING, EXTREMITY CLINICAL INFORMATION: Bilateral [id number] amputations. Assess for abscess. COMPARISON: None. TECHNIQUE: Real-time sonographic imaging of the left lower extremity, in the region of clinical concern. Specifically, multiple grayscale and color Doppler images of the left stump were obtained, in the region of clinical concern. FINDINGS: Real-time sonographic imaging of the left stump, in the region of clinical concern, demonstrates a small minimally complex fluid collection along the anterior aspect of the stump measuring 2.8 x 0.2 x 2.5 cm in sagittal, AP and transverse dimensions respectively. There is no internal vascularity. There is minimal surrounding vascularity on color Doppler imaging. IMPRESSION: A small fluid collection within the soft tissues of the left lower extremity, along the anterior aspect of the left stump. This collection measures approximately 2.8 x 0.2 x 2.5 cm in sagittal, AP and transverse dimensions respectively. There is minimal surrounding vascularity. This small fluid collection could reflect a small hematoma although a small organizing fluid collection/abscess cannot be entirely excluded. Correlate with clinical exam and patient clinical symptoms. An image guided diagnostic aspiration may be obtained for further evaluation.
--- NOTE | 2016-08-22 23:05 | NUR ---
PT REFUSED BEDTIME COVERAGE OF INSULIN. LOAD DROPPER MICKIE GODDARD . WILL FOLLOW
[2016-08-22 23:29] VITALS: BP 156/80
[2016-08-23 06:34] VITALS: BP 140/80
[2016-08-23 07:44] LABS: ABSOLUTE BASOPHIL COUNT 0 /CUMM (0.0-0.2); ABSOLUTE EOSINOPHIL COUNT 0.3 /CUMM (0.0-0.7); ABSOLUTE GRANULOCYTE CT 4.7 /CUMM (1.4-6.5); ABSOLUTE LYMPH COUNT 2.1 /CUMM (1.2-3.4); ABSOLUTE MONOCYTE COUNT 0.4 /CUMM (0.10-0.60); BASOPHIL % 0.2 % (0.0-2.0); EOSINOPHIL % 4.3 % (0-5); HEMATOCRIT 27.7 % (42-52); MEAN CORPUSCULAR HGB 28.3 PG (27.0-31.0); MEAN CORPUSCULAR HGB CONC 32.6 G/DL (33.0-37.0); MEAN CORPUSCULAR VOLUME 86.9 FL (80.0-94.0); MEAN PLATELET VOLUME 9.9 FL (7.4-10.4); PLATELET COUNT 162 /CUMM (130-400); RBC DISTRIBUTION WIDTH 15.9 % (11.5-14.5); RED BLOOD CELL CT 3.19 /CUMM (4.70-6.10); WHITE BLOOD CELL COUNT 7.5 /CUMM (4.8-10.8)
--- NOTE | 2016-08-23 08:46 | PN- Housestaff ---
HENRIQUE ANDINO,PITA 08/23/16 0845: Subjective Follow-up For: -Healthcare associated pneumonia -End stage renal disease on dialysis -Diabetes mellitus -Hypertension Subjective: Patient seen and examined. He is seen sitting upright in bed resting comfortably. He appears to be in no acute distress. He reports improvement in his generalized aches and pains but is still concerned about the swelling of his distal left stump. He does not have any new subjective complaints today. Additionally he denies any blurred/double vision, lightheadedness/dizziness, headache, fever, chills, chest pain, palpitations, worsening shortness of breath , persistent productive cough, nausea, vomiting, diarrhea. No overnight events reported. Review of Systems Constitutional: Reports: see HPI. Objective Last 24 Hrs of Vital Signs/I&O Vital Signs Date Time Temp Pulse Resp B/P Pulse O2 O2 Flow FiO2 Ox Delivery Rate 08/23 0847 77 140/82 08/23 0847 77 140/82 08/23 0847 77 140/82 08/23 0740 Room Air 08/23 0634 98.1 80 16 140/80 100 Room Air 08/22 2329 98.8 83 20 156/80 95 Room Air 08/22 2107 71 118/70 08/22 1600 Room Air 08/22 1447 98.5 74 20 120/70 93 Intake & Output 08/23 1600 08/23 0800 08/23 0000 Intake Total 120 980 Output Total Balance 120 980 Intake, IV 0 20 Intake, Oral 120 960 Number 0 Bowel Movements Physical Exam General Appearance: Alert, Oriented X3, Cooperative, No Acute Distress Other Physical Findings: General - well developed, well nourished middle aged man in no acute distress HEENT - NCAT, EOMI, PERRL, anicteric sclera CVS - S1, S2 w/o m/g/r Resp - decrease bibasilar airflow with scant right sided wheezing, no obvious crackles GI - Soft, mild left upper quadrant tenderness, nondistended, bowel sounds intact Neuro - Awake and Alert, CN II - XII grossly intact Ext - normal pulses, no cyanosis/clubbing/edema, bilateral below knee amputation , 1.5" fluctuant nondraining mass on distal left stump Current Medications: Current Medications Sig/Malu Start time Last Medication Dose Route Stop Time Status Admin Acetaminophen 650 MG Q6P PRN 08/20 2145 AC 08/22 PO 1201 Albuterol Sulfate 2 PUF Q4P PRN 08/23 0845 AC 08/23 INH 1206 Amlodipine Besylate 10 MG DAILY 08/21 1000 AC 08/23 PO 0847 Atorvastatin Calcium 10 MG 1700 08/21 1700 AC 08/22 PO 1743 Calcium Acetate 667 MG WM 08/21 1200 AC 08/23 PO 1205 Carvedilol 25 MG BID 08/21 1000 AC 08/23 PO 0847 Ceftriaxone Sodium 1,000 MG Q24H 08/22 1600 AC 08/22 IV 1742 Clonidine 0.1 MG BID 08/21 1000 AC 08/23 PO 0847 Epoetin Antonio 6,000 UNIT MoWeFr PRN 08/21 1115 AC IV Guaifenesin 600 MG Q12 08/21 1447 AC 08/23 PO 0847 Heparin Sodium 5,000 UNIT Q8 08/20 2200 AC 08/23 (Porcine) SC 0516 Insulin Aspart 0 AT BEDTIME 08/21 2200 AC SC Insulin Aspart 0 TIDAC 08/21 1200 AC 08/23 SC 1205 Insulin Detemir 5 UNITS BID 08/22 2200 AC 08/23 SC 0844 Melatonin 6 MG AT BEDTIME 08/20 2345 AC 08/22 PO 2106 Methadone HCl 5 MG BID 08/24 1000 AC PO Methadone HCl 10 MG BID 08/23 1000 AC 08/23 PO 08/23 2201 0846 Methadone HCl 15 MG BID 08/22 1000 DC 08/22 PO 08/22 2201 2105 Mirtazapine 15 MG AT BEDTIME 08/20 2345 AC 08/22 PO 2106 Multivitamins 1 TAB DAILY 08/21 1009 AC 08/23 PO 0847 Nicotine 21 MG DAILY 08/21 1000 AC 08/23 TOP 0900 Omeprazole 20 MG 0700,1600 08/20 2334 AC 08/23 PO 0514 Ondansetron HCl 4 MG Q6P PRN 08/20 2345 AC 08/22 IV 0839 Quetiapine Fumarate 200 MG AT BEDTIME 08/21 0015 AC 08/22 PO 2106 Vancomycin HCl 0 Wednesday .. 08/20 2315 AC IV Last 24 Hrs of Lab/Arpit Results Last 24 Hrs of Labs/Mics: Laboratory Tests 08/23/16 0650: Anion Gap 10, Estimated GFR 9 L, BUN/Creatinine Ratio 3.6 L, CBC w Diff NO MAN DIFF REQ, RBC 3.19 L, MCV 86.9, MCH 28.3, RDW 15.9 H, MPV 9.9, Gran % 63.0, Lymphocytes % 27.7, Monocytes % 4.8, Eosinophils % 4.3, Basophils % 0.2, Absolute Granulocytes 4.7, Absolute Lymphocytes 2.1, Absolute Monocytes 0.4, Absolute Eosinophils 0.3, Absolute Basophils 0, PUBS MCHC 32.6 L 08/22/162034: Random Vancomycin 17.5 Assessment/Plan Assessment: Patient feels well today and continues to remain afebrile without leukocytosis while on intravenous ceftriaxone and vancomycin. Blood sugars are mildly improved today with the increase of his Levemir regimen yesterday. Ultrasound of the fluctuant mass on the patient's left lower extremity them treated a small fluid collection possibly account development representative of a small hematoma or a small organizing fluid collection/abscess. General surgery consult was placed for evaluation of this finding, however any intervention was deferred as it was felt to be more appropriate for interventional radiology to aspirate the mass given its anatomical location on the patient's distal left stump. Ultrasound of the patient's AV fistula is still pending. Echocardiogram is still pending. Influenza PCR result still pending. #Healthcare associated pneumonia -Patient presented with history of fever and chills Fever and chills for the last 2 days, patient received a dose of ceftazidime and vancomycin after his dialysis on Saturday 08/19 at [facility] in [place], blood culture was obtained at that time that grew gram-positive cocci in cluster. -On admission MAXIMUM TEMPERATURE of 99.2, rest of vital signs are stable, white blood cell 6.7 -Chest x-ray is suggestive for pneumonia -Continue vancomycin and ceftaz with dialysis Day #3 -Mucinex 600mg PO Q12H -Follow-up blood culture -Follow up sputum culture pending receipt -Follow up urine Legionella and strep antigen pending receipt (patient makes very small amount of urine) -Follow up flu rapid test #Acute coronary disease -Patient reported left achy chest pain, not radiated to arm or neck, not associated with shortness of breath or palpitation -Fist EKG showed some Q waves changes -Repeated EKG and troponin are negative -Chest pain is reproducible mostly muscular in origin #ESRD on dialysis -Dialysis schedule Wednesday, Wednesday and Wednesday, last dialysis was Wednesday -Nephro consult was obtained, thanks for recommendation -Patient is for dialysis today -Continue Depakote and alpha 6000 unit with dialysis -Continue Nephrocaps 1 tab by mouth daily #Opioid dependence: -Patient reported history of heroin abuse daily sniffing, denied IV use -HIV negative -Hepatic panel negative -Rapid methadone taper, patient received 1 dose of methadone 20 mg at 12 AM 08/21 -Psych consult is still pending -Urine toxicology pending receipt -Nicotine patch 21 mg -Patient is on other psych medication, Seroquel 200 mg at bedtime, mirtazapine 15 mg at bedtime #Diabetes: -Continue Accu check -Medium dose sliding scale -Levemir 5 units twice a day #Hypertension and hyperlipidemia -Continue atorvastatin 10 mg by mouth daily -Continue clonidine 0.1 mg twice a day by mouth -Continue carvedilol 25 mg by mouth twice a day -Continue Norvasc sac 10 mg by mouth daily #GERD -Continue omeprazole 20 mg twice a day Code Full Diet regular diet DVT prophylaxis heparin subcutaneous Consultation nephrology and psychiatric Problem List: 1. End stage renal disease on dialysis Pain Ratin Pain Location: None Pain Goal: Remain pain free Pain Plan: See assessment Tomorrow's Labs & Rationales: Complete blood count-infection (With hemodialysis) FREDERIC FOUNTAIN MD 08/23/16 0900: Attending MD Review Statement Attending Statement Attending MD Statement: examined this patient, discuss w/resident/PA/SUPERVISOR BLASTING, agreed w/resident/PA/SUPERVISOR BLASTING, reviewed EMR data (avail), discussed with nursing, discussed with case mgmt, reviewed images Attending Assessment/Plan: Appreciate SELMA head. Patient is now on vancomycin for the gram-positive cocci in clusters identified in the blood culture done at [facility]. In addition we have him on ceftriaxone for the possibility of a staph pneumonia. The ultrasound of the stump did show a small collection which could be an organizing hematoma versus early abscess. The ultrasound of the access site is still pending. Patient keeps on asking me for opiate medications and I explained at length that we are actually doing a methadone taper for opiate use and it would be counterproductive and useless to give him opiate medications. He is a 50-year- old diabetic, ESRD on hemodialysis Wednesday, intranasal drug user and bilateral amputations.
--- NOTE | 2016-08-23 13:15 | Cons- General Surgery ---
General Information and HPI Consulting Request Date of Consult: 08/23/16 Requested By: JUSTINE ANDINO,VINICIUS History of Present Illness: CC: reason for consultation is left amputation stump collection HPI: 50-year-old smoker nondiabetic on hemodialysis with a remote history of bilateral BKA's, admitted 3 days ago with reports of fever and positive blood cultures part of this workup ultrasound was done of a swelling at his left BKA stump and surgical consult was called. He says this soft lump is gradually enlarging and is uncomfortable, doesn't recall any trauma to it he hasn't had it before or on the other stump is not red it wrinkles a little when he presses it and his had it for several months. I've reviewed the [facility]. No history of GERD, PUD, bleeding problems, heart disease or issues with anesthesia. On review since he's been here blood cultures are negative thus far and he has been afebrile. Allergies/Medications Allergies: Coded Allergies: No Known Allergies (08/20/16) Home Med List: Amlodipine Besylate 10 MG TABLET 1 TAB PO DAILY BP (Reported) Atorvastatin Calcium 10 MG TABLET 1 TAB PO DAILY CHOLESTEROL (Reported) Calcium Acetate 667 MG TABLET 2 TAB PO TID WM KIDNEYS (Reported) Carvedilol 25 MG TABLET 1 TAB PO BID HEART/BP (Reported) Clonidine HCl 0.1 MG TABLET 1 TAB PO BID BP (Reported) Insulin Glargine,Hum.rec.anlog (Lantus Solostar) 100 UNIT/ML (3 ML) INSULN.PEN 5 UNIT SC QHS DM (Reported) Insulin Lispro (Humalog Kwikpen U-100) (Unknown Strength) INSULN.PEN (Unknown Dose) SC TIDAC/HS DM (Reported) Melatonin 3 MG TABLET 2 TAB PO QHS SLEEP (Reported) Menthol (Bengay) 5 % GEL..GRAM. 1 GOOD TOP Q12H PRN BACK PAIN (Reported) Mirtazapine 15 MG TABLET 1 TAB PO QHS MENTAL HEALTH (Reported) Omeprazole 20 MG CAPSULE.DR 1 CAP PO BID GI (Reported) Ondansetron HCl 4 MG TABLET 1 TAB PO PRN N/V (Reported) Quetiapine Fumarate (Seroquel XR) 200 MG TAB.ER.24H 1 TAB PO QPM MENTAL HEALTH /SLEEP (Reported) [RENAPLEX D] 1 TAB PO DAILY SUPPLEMENT (Reported) Current Medications: I reviewed Current Medications Sig/Malu Start time Last Medication Dose Route Stop Time Status Admin Acetaminophen 650 MG Q6P PRN 08/20 2145 AC 08/22 PO 1201 Albuterol Sulfate 2 PUF Q4P PRN 08/23 0845 AC 08/23 INH 1206 Amlodipine Besylate 10 MG DAILY 08/21 1000 AC 08/23 PO 0847 Atorvastatin Calcium 10 MG 1700 08/21 1700 AC 08/22 PO 1743 Calcium Acetate 667 MG WM 08/21 1200 AC 08/23 PO 1205 Carvedilol 25 MG BID 08/21 1000 AC 08/23 PO 0847 Ceftriaxone Sodium 1,000 MG Q24H 08/22 1600 AC 08/22 IV 1742 Clonidine 0.1 MG BID 08/21 1000 AC 08/23 PO 0847 Epoetin Antonio 6,000 UNIT MoWeFr PRN 08/21 1115 AC IV Guaifenesin 600 MG Q12 08/21 1447 AC 08/23 PO 0847 Heparin Sodium 5,000 UNIT Q8 08/20 2200 AC 08/23 (Porcine) SC 0516 Insulin Aspart 0 AT BEDTIME 08/21 2200 AC SC Insulin Aspart 0 TIDAC 08/21 1200 AC 08/23 SC 1205 Insulin Detemir 5 UNITS BID 08/22 2200 AC 08/23 SC 0844 Melatonin 6 MG AT BEDTIME 08/20 2345 AC 08/22 PO 2106 Methadone HCl 5 MG BID 08/24 1000 AC PO Methadone HCl 10 MG BID 08/23 1000 AC 08/23 PO 08/23 2201 0846 Methadone HCl 15 MG BID 08/22 1000 DC 08/22 PO 08/22 2201 2105 Mirtazapine 15 MG AT BEDTIME 08/20 2345 AC 08/22 PO 2106 Multivitamins 1 TAB DAILY 08/21 1009 AC 08/23 PO 0847 Nicotine 21 MG DAILY 08/21 1000 AC 08/23 TOP 0900 Omeprazole 20 MG 0700,1600 08/20 2334 AC 08/23 PO 0514 Ondansetron HCl 4 MG Q6P PRN 08/20 2345 AC 08/22 IV 0839 Quetiapine Fumarate 200 MG AT BEDTIME 08/21 0015 AC 08/22 PO 2106 Vancomycin HCl 0 WEDNESDAY WED WEDNESDAY .. 08/20 2315 AC IV Past History Medical History Blood Transfusion Hx: No Neurological: NONE EENT: NONE Cardiovascular: hypertension, hyperlipidemia, myocardial infarction Respiratory: NONE Gastrointestinal: GERD Hepatic: NONE Renal: END STAGE RENAL Psychiatric: anxiety, depression, IV drug abuse, substance abuse Endocrine: diabetes Blood Disorders: IRON DEF. 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 Home Smoking Status: Current Everyday Smoker ETOH Use: denies use Illicit Drug Use: heroin Functional Ability ADLs Independent: dressing, eating, toileting, bathing. Ambulation: prosthesis IADLs Independent: shopping, housework, finances, food prep, telephone, transportation , medication admin. Review of Systems Review of Systems: Constitutional: No fever, sweats or weight loss ENMT: No sore throat Cardiovascular: No chest pain, palpitations or leg swelling Respiratory: No shortness of breath, cough, or sputum or dyspnea on exertion GI: No GERD or bleeding per rectum : No dysuria or hematuria Musculoskeletal: No new muscle weakness, bone or joint pain Skin / Breast: No jaundice, rashes or itching Psychiatric: there is a history of drug abuse no depression or anxiety Hematologic / lymphatic system: No problems with excessive bleeding, bruising, or blood clots Exam & Diagnostic Data Vital Signs and I&O I reviewed Vital Signs Date Time Temp Pulse Resp B/P Pulse O2 O2 Flow FiO2 Ox Delivery Rate 08/23 0847 77 140/82 08/23 0847 77 140/82 08/23 0847 77 140/82 08/23 0740 Room Air 08/23 0634 98.1 80 16 140/80 100 Room Air 08/22 2329 98.8 83 20 156/80 95 Room Air 08/22 2107 71 118/70 08/22 1600 Room Air 08/22 1447 98.5 74 20 120/70 93 I reviewed Intake & Output 08/23 0808/23 0000 08/22 1600 08/22 0800 08/22 0000 Intake Total 120 980 480 200 Output Total 25 50 Balance 120 980 455 150 Intake, IV 0 20 Intake, Oral 120 960 480 200 Number 0 Bowel Movements Output, Urine 25 50 Patient 168 lb 168 lb Weight Physical Exam: Constitutional: pleasant, no acute distress, conversant Eyes: sclera anicteric ENMT: ears and nose atraumatic, moist mucous membranes, good dentition, no lip lesions Neck: Supple, trachea is midline, no cervical or supraclavicular adenopathy and no palpable thyromegaly Cardiovascular: S1, S2, no murmurs, no peripheral edema Respiratory: clear to auscultation with normal respiratory effort and no intercostal retractions GI: abdomen soft, nontender, nondistended, no palpable hepatosplenomegaly Extremities / lymphatics: symmetrically warm, free range of motion no peripheral edema, no cervical, supraclavicular, axillary, or inguinal adenopathy Musculoskeletal: He has BKA's did not evaluate gait and station, no digital cyanosis, good muscle strength and tone no atrophy, motor grossly 5 out of 5 throughout On the anterior end of his left BKA is a soft round nonerythematous 3 cm lump is not tender skin is intact Skin: no jaundice, no rashes warm, nondiaphoretic, no areas of erythema or induration Psychiatric: mood and affect are appropriate and alert and oriented to person place and time Last 24 Hours of Labs: I reviewed Laboratory Tests 08/23 08/22 0650 2035 Chemistry Sodium (137 - 145 mmol/L) 135 L Potassium (3.5 - 5.1 mmol/L) 4.3 Chloride (98 - 107 mmol/L) 99 Carbon Dioxide (22 - 30 mmol/L) 26 Anion Gap (5 - 16) 10 BUN (9 - 20 mg/dL) 25 H Creatinine (0.7 - 1.2 mg/dL) 6.9 *H Estimated GFR (>60 ml/min) 9 L BUN/Creatinine Ratio (7 - 25 %) 3.6 L Hematology CBC w Diff NO MAN DIFF REQ WBC (4.8 - 10.8 /CUMM) 7.5 RBC (4.70 - 6.10 /CUMM) 3.19 L Hgb (14.0 - 18.0 G/DL) 9.0 L Hct (42 - 52 %) 27.7 L MCV (80.0 - 94.0 FL) 86.9 MCH (27.0 - 31.0 PG) 28.3 RDW (11.5 - 14.5 %) 15.9 H Plt Count (130 - 400 /CUMM) 162 MPV (7.4 - 10.4 FL) 9.9 Gran % (42.2 - 75.2 %) 63.0 Lymphocytes % (20.5 - 51.1 %) 27.7 Monocytes % (1.7 - 9.3 %) 4.8 Eosinophils % (0 - 5 %) 4.3 Basophils % (0.0 - 2.0 %) 0.2 Absolute Granulocytes (1.4 - 6.5 /CUMM) 4.7 Absolute Lymphocytes (1.2 - 3.4 /CUMM) 2.1 Absolute Monocytes (0.10 - 0.60 /CUMM) 0.4 Absolute Eosinophils (0.0 - 0.7 /CUMM) 0.3 Absolute Basophils (0.0 - 0.2 /CUMM) 0 PUBS MCHC (33.0 - 37.0 G/DL) 32.6 L Toxicology Random Vancomycin (ug/ml) 17.5 Assessment/Plan Assessment/Plan Studies: I reviewed the ultrasound done of this area on his left BKA on PACS myself from yesterday is a thin sliver of fluid centrally Impression is fluid collection at BKA stump, I don't feel this is the source of infection, that needs further workup may be has a pneumonia, maybe but at the stump site, it's not grossly inflamed on exam the ultrasound to me suggests its chronic, he's had it for several months but it is uncomfortable and gradually increasing in size it's probably aggravated by the prosthesis brace so this is an area that he have to be very careful avoiding wounds and inflammation, and based on the history and the ultrasound this is probably not all just simple fluid and may be loculated so because of the risk I recommend needle aspiration under ultrasound guidance by radiology for more precision. I did tell him that this may then promptly recur. Problem List: 1. End stage renal disease on dialysis Consult Acknowledgment - Thank you for your consult request.
[2016-08-23 15:17] VITALS: BP 132/74
[2016-08-23 16:00] VITALS: BP 135/74
[2016-08-23 21:20] VITALS: BP 152/82
--- NOTE | 2016-08-23 22:17 | ULTRASOUND REPORT ---
EXAMINATION: US HEMODIALYSIS ACCESS SHUNT CLINICAL INFORMATION: Pt on hemodialysis via a left upper extremity AV fistula. Positive blood cultures. Evaluate fistula for perivascular abscess, thrombus, or infected pseudoaneurysm. COMPARISON: None TECHNIQUE: Duplex doppler US with color flow mapping and spectral analysis was performed of the patient's left upper arm primary AV fistula and venous outflow. FINDINGS: The patient has a brachial artery to cephalic vein primary AV fistula. The arterial-venous anastomosis is at the level of the antecubital fossa and is widely patent. No thrombus, pseudoaneurysm, aneurysm, dissection, or perivascular fluid collection was identified. No focal flow acceleration or turbulence was seen in the cephalic vein or at its confluence with the axillary vein. IMPRESSION: 1. Patent left brachial artery to transposed cephalic vein primary arterial-venous fistula. 2. No sonographic findings to suggest an active source of infection from the AV fistula.
[2016-08-24 02:18] VITALS: BP 112/70
[2016-08-24 06:00] VITALS: BP 140/78
--- NOTE | 2016-08-24 07:22 | PN- Housestaff ---
See Addendum Subjective Follow-up For: -Healthcare associated pneumonia -End stage renal disease on dialysis -Left BKA cyst -Diabetes mellitus -Hypertension Subjective: Patient was seen and examined this morning, no overnight events reported by the patient or the nurse. Patient continues to have productive cough, sputum gets thinner, green in color, denies blood. Patient reports chills, night sweats, nausea overnight but no vomiting. Patient denies abdominal pain, chest pain, shortness of breath. He reported throbbing pain 8/10 of left below knee amputation stump. In anticipation for IR procedure, patient was put nothing by mouth and heparin subcutaneous was discontinued. Review of Systems Constitutional: Reports: see HPI. Objective Last 24 Hrs of Vital Signs/I&O Vital Signs Date Time Temp Pulse Resp B/P Pulse O2 O2 Flow FiO2 Ox Delivery Rate 08/24 0839 82 144/72 08/24 0839 82 144/72 08/24 0838 82 144/72 08/24 0600 98.2 86 18 140/78 95 Room Air 08/24 0218 97.9 73 18 112/70 92 Room Air 08/24 0000 Room Air 08/23 2125 98.5 83 16 152/82 08/23 2125 98.5 83 16 152/82 08/23 2120 98.5 83 16 152/82 94 Room Air 08/23 1600 98.0 80 16 135/74 94 Room Air 08/23 1517 99.8 74 18 132/74 91 Intake & Output 08/24 1600 08/24 0800 08/24 0000 Intake Total 100 480 Output Total 400 Balance 100 80 Intake, Oral 100 480 Output, Urine 400 Patient 71.724 kg Weight Physical Exam General Appearance: Alert, Oriented X3, Cooperative, No Acute Distress Skin: No Rashes, No Breakdown, No Significant Lesion HEENT: Atraumatic, PERRLA, EOMI, Mucous Membr. moist/pink Neck: Supple, No JVD Cardiovascular: Regular Rate, Normal S1, Normal S2, No Murmurs Lungs: left basal crackles and crepitation Abdomen: Normal Bowel Sounds, Soft, No Tenderness Neurological: Normal Speech, Strength at 5/5 X4 Ext, Normal Tone, Sensation Intact, Cranial Nerves 3-12 NL, Reflexes 2+ Extremities: No Clubbing, No Cyanosis, No Edema, Normal Pulses, left below knee amputation stump flatulent cyst without signs of inflammation, nontender Assessment/Plan Assessment: Mr. Doll is 50 year old male with past medical history significant for end- stage renal disease on dialysis, bilateral below knee amputation due to diabetic foot ulcers, hypertension, diabetes mellitus, hyperlipidemia, peripheral neuropathy, heroin abuse(sniffing, no IV) who presented on 08/20/16 with chief complaint of fever, chills, productive cough of green sputum. Chest x-ray 08/20/16 FINDINGS: There is tortuosity aorta. Cardiac size anita and vasculature are within normal limits. There is a patchy density at the left base with slight elevation of the left hemidiaphragm. There is no consolidation in the right lung or left upper lung. There is some left apical thickening. There is no pneumothorax or pleural fluid. IMPRESSION: Patchy left base density could represent pneumonia or atelectasis. #Healthcare associated pneumonia -On admission MAXIMUM TEMPERATURE of 99.2, rest of vital signs are stable, white blood cell 6.7 -Chest x-ray is suggestive for pneumonia -Patient presented with history of fever and chills Fever and chills for the last 2 days, patient received a dose of ceftazidime and vancomycin after his dialysis on Saturday 08/19 at [facility] in [place], blood cultures was obtained at that time, one tube is positive for staphylococcal Warneri that represents contamination. -Discontinue vancomycin and ceftaz -Continue ceftriaxone 1000 mg every 24 Day#3 -Mucinex 600mg PO Q12H -Blood culture negative so far -Follow up sputum culture pending receipt -Follow up urine Legionella and strep antigen pending receipt (patient makes very small amount of urine) -Flu rapid test pending #Other source of infection -Patient reported history of left BKA stump cyst 34 that's painful although no signs of inflammation were appreciated -Ultrasound was obtained that revealed small fluid collection that reflect small hematoma or small organizing fluid collection/abscess -Ultrasound-guided needle aspiration will be done today by IR 08/24 -Body fluid culture, AFB, fungal, cytology orders ere placed -Left arm hemodialysis fistula graft Doppler ultrasound was obtained, no sonographic findings that suggest active source of infection from the fistula -Patient maintains to have low-grade temps 99.8, chills, night sweats however no WBC since admission, the symptoms can be explained as opioid withdrawal symptoms #Acute coronary disease -Patient reported left achy chest pain, not radiated to arm or neck, not associated with shortness of breath or palpitation -Fist EKG showed some Q waves changes -Repeated EKG and troponin are negative -Chest pain is reproducible mostly muscular in origin #ESRD on dialysis -Dialysis schedule Wednesday, Wednesday and Wednesday -Nephro consult was obtained, thanks for recommendation -Patient is for dialysis today -Continue Depakote and alpha 6000 unit with dialysis -Continue Nephrocaps 1 tab by mouth daily #Opioid dependence: -Patient reported history of heroin abuse daily sniffing, denied IV use -HIV negative -Hepatic panel negative -Rapid methadone taper, methadone 20 every 122 doses, 15 mg every 12 hours 2 doses, 10 mg every 12 hours 2 doses, 5 mg every 122 doses and then stop -Urine toxicology pending receipt -Nicotine patch 21 mg -Patient is on other psych medication, Seroquel 200 mg at bedtime, mirtazapine 15 mg at bedtime, clonidine 0.1 mg twice a day by mouth #Diabetes: -Continue Accu check -Medium dose sliding scale -Levemir 5 units twice a day #Hypertension and hyperlipidemia -Continue atorvastatin 10 mg by mouth daily -Continue carvedilol 25 mg by mouth twice a day -Continue Norvasc sac 10 mg by mouth daily #GERD -Continue omeprazole 20 mg twice a day Code Full Diet carbohydrate 3 DVT prophylaxis heparin subcutaneous Consultation nephrology,psychiatric, ID, IR Problem List: 1. Fluid collection at surgical site 2. End stage renal disease on dialysis 3. Heroin addiction Pain Ratin Pain Location: Left stumb cyst Pain Goal: Pain 4 or less Pain Plan: Patient is on methadone taper Tomorrow's Labs & Rationales: None
[2016-08-24 12:47] LABS: ABSOLUTE BASOPHIL COUNT 0 /CUMM (0.0-0.2); ABSOLUTE EOSINOPHIL COUNT 0.3 /CUMM (0.0-0.7); ABSOLUTE GRANULOCYTE CT 5.8 /CUMM (1.4-6.5); ABSOLUTE LYMPH COUNT 1.8 /CUMM (1.2-3.4); ABSOLUTE MONOCYTE COUNT 0.5 /CUMM (0.10-0.60); BASOPHIL % 0.4 % (0.0-2.0); GRANULOCYTE % 69.1 % (42.2-75.2); HEMATOCRIT 27.2 % (42-52); MEAN CORPUSCULAR HGB 28.3 PG (27.0-31.0); MEAN CORPUSCULAR HGB CONC 32.8 G/DL (33.0-37.0); MEAN CORPUSCULAR VOLUME 86.1 FL (80.0-94.0); MEAN PLATELET VOLUME 9.5 FL (7.4-10.4); PLATELET COUNT 167 /CUMM (130-400); RBC DISTRIBUTION WIDTH 15.6 % (11.5-14.5); RED BLOOD CELL CT 3.16 /CUMM (4.70-6.10); WHITE BLOOD CELL COUNT 8.4 /CUMM (4.8-10.8)
--- NOTE | 2016-08-24 12:51 | ECHOCARDIOGRAM REPORT ---
NOAH JAMES Age: 50 : 1965 Gender: M Exam Date: 08/23/2016 13:12 Exam Location: [place] Ht (in): 68 Wt (lb): 167 BSA: 1.92 BP: 140 / 82 Ordering Physician: DIEGO PEREZ, Referring Physician: DIEGO PEREZ MD Technologist: Breanne Peck [facility] Room Number: [id number] Indications: CHEST PAIN Rhythm: Sinus Technical Quality: good FINDINGS Left Ventricle Normal left ventricular size with mild left ventricular hypertrophy. Normal systolic function with no obvious regional wall motion abnormalities. Normal left ventricular diastolic filling pattern for age. The ejection fraction is visually estimated at 60%. Right Ventricle The right ventricle is normal in size and function. Right Atrium The right atrium is normal in size. Left Atrium The left atrium is mildly enlarged. The interatrial septum is intact. Mitral Valve The mitral valve is normal in structure and function. There is trace to mild mitral regurgitation. Aortic Valve Structurally normal aortic valve without significant sclerosis or stenosis. There is no aortic regurgitation. Tricuspid Valve The tricuspid valve is normal in structure and function. There is trace tricuspid regurgitation. Pulmonary artery systolic pressure is normal. Pulmonic Valve Structurally normal pulmonic valve. There is trace pulmonic regurgitation. Pericardium Normal pericardium without effusion. No pleural effusion. Great Vessels Normal aortic root dimension. The aortic arch and great vessels are well seen and are normal. CONCLUSIONS 1. Normal EF of 60%. 2. Mild left ventricular hypertrophy. 3. Mild left atrial enlargment. 4. Trace to mild mitral regurgitation. 5. Trace tricuspid regurgitation. 6. Trace pulmonic regurgitation. David Miles M.D. (Electronically Signed) Final Date: 24 August 2016 12:51 MEASUREMENTS (Male / Female) Normal Values 2D ECHO LV Diastolic Diameter PLAX 4.3 cm 4.2 - 5.9 / 3.9 - 5.3 cm LV Systolic Diameter PLAX 3.0 cm 2.1 - 4.0 cm LV Fractional Shortening PLAX 30.1 % 25 - 46 % LV Ejection Fraction 2D Teich 57.7 % IVS Diastolic Thickness 1.4 cm LVPW Diastolic Thickness 1.4 cm LV Relative Wall Thickness 0.6 RV Internal Dim ED PLAX 2.6 cm 1.9 - 3.8 cm LVOT Diameter 2.1 cm Aortic Root Diameter 3.0 cm LA Systolic Diameter LX 4.2 cm 3.0 - 4.0 / 2.7 - 3.8 cm LA Volume 44.0 cm 18 - 58 / 22 - 52 cm Ascending Aorta Diameter 3.3 cm DOPPLER AV Peak Velocity 114.0 cm/s AV Peak Gradient 5.2 mmHg AV Mean Velocity 86.3 cm/s AV Mean Gradient 3.0 mmHg AV Velocity Time Integral 24.5 cm LVOT Peak Velocity 95.5 cm/s LVOT Peak Gradient 3.6 mmHg LVOT Mean Velocity 68.6 cm/s LVOT Mean Gradient 2.0 mmHg LVOT Velocity Time Integral 18.9 cm LVOT Stroke Volume 65.5 cm AV Area Cont Eq vti 2.7 cm AV Area Cont Eq pk 2.9 cm MV Peak Velocity 107.0 cm/s MV Peak Gradient 4.6 mmHg MV Mean Velocity 58.9 cm/s MV Mean Gradient 2.0 mmHg Mitral E Point Velocity 86.4 cm/s MV PHT Velocity 91.2 cm/s MV Deceleration [place] 352.5 cm/s MV Pressure Half Time 77.6 ms MV Area PHT 2.8 cm MV Deceleration Time 116.0 ms TR Peak Velocity 95.6 cm/s TR Peak Gradient 3.7 mmHg Right Atrial Pressure 5.0 mmHg Pulmonary Artery Systolic Pressu 8.7 mmHg Right Ventricular Systolic Press 8.7 mmHg PV Peak Velocity 79.3 cm/s PV Peak Gradient 2.5 mmHg PV Mean Velocity 59.8 cm/s PV Mean Gradient 2.0 mmHg PV Velocity Time Integral 19.1 cm LV E' Lateral Velocity 6.3 cm/s Mitral E to LV E' Lateral Ratio 13.6 LV E' Septal Velocity 4.8 cm/s Mitral E to LV E' Septal Ratio 18.1
--- NOTE | 2016-08-24 12:55 | PN- Nephrology ---
Assessment/Plan Assessment: End-stage renal disease: Stable from renal standpoint. Dialysis in process today according to Wednesday schedule. Coag-negative staph bacteremia: agree that most likely a contaminant. Healthcare associated pneumonia: Currently on antibiotic regimen Left stump fluid collection: Status IR guided aspiration Suggestion: HD today Epogen 3x/week with HD Subjective Subjective: No acute events Seen on dialysis cough improving s/p I&D of fluid collection L stump; per patient was told looks like old blood Review of Systems: No chest pain or shortness of breath Objective Vital Signs and I&Os Vital Signs Date Time Temp Pulse Resp B/P Pulse O2 O2 Flow FiO2 Ox Delivery Rate 08/24 0839 82 144/72 08/24 0839 82 144/72 08/24 0838 82 144/72 08/24 0600 98.2 86 18 140/78 95 Room Air 08/24 0218 97.9 73 18 112/70 92 Room Air 08/24 0000 Room Air 08/23 2124 98.5 83 16 152/82 08/23 2124 98.5 83 16 152/82 08/23 212 98.5 83 16 152/82 94 Room Air 08/23 1600 98.0 80 16 135/74 94 Room Air 08/23 1517 99.8 74 18 132/74 91 Intake & Output 08/24 1600 08/24 0400 08/23 1600 08/23 0400 08/22 1600 08/22 0400 Intake Total 100 480 570 980 680 Output Total 325 400 75 Balance -225 80 570 980 605 Intake, IV 0 20 Intake, Oral 100 480 570 960 680 Number 0 Bowel Movements Output, Urine 325 400 75 Patient 158 lb 168 lb Weight Physical Exam: General: NAD, A+O x3. HEENT: NC/AT. No icterus. Moist mucosa Neck: negative for POP, JVD CV: RRR, no m/r/g Pulm: CTAB, no rales Abd: soft, NT/ND, negative renal bruits Lower Ext: neg edema +BKAs Upper Ext: AVF+ thrill/bruit Back: negative for CVA tenderness Neuro: neg tremor, asterixis Skin: no rash, jaundice : no navarro catheter Current Medications: Current Medications Sig/Malu Start time Last Medication Dose Route Stop Time Status Admin Acetaminophen 650 MG .STK-MED ONE 08/23 2120 DC PO 08/23 Acetaminophen 650 MG Q6P PRN 08/20 2145 AC 08/23 PO 2124 Albuterol Sulfate 2 PUF Q4P PRN 08/23 0845 AC 08/23 INH 1206 Amlodipine Besylate 10 MG DAILY 08/21 1000 AC 08/24 PO 0838 Atorvastatin Calcium 10 MG 1700 08/21 1700 AC 08/23 PO 1639 Calcium Acetate 667 MG WM 08/21 1200 AC 08/24 PO 0838 Carvedilol 25 MG BID 08/21 1000 AC 08/24 PO 0839 Ceftriaxone Sodium 1,000 MG Q24H 08/22 1600 AC 08/23 IV 1640 Clonidine 0.1 MG BID 08/21 1000 AC 08/24 PO 0839 Epoetin Antonio 6,000 UNIT MoWeFr PRN 08/21 1115 AC IV Guaifenesin 600 MG Q12 08/21 1447 AC 08/24 PO 0839 Heparin Sodium 5,000 UNIT Q8 08/20 2200 DC 08/23 (Porcine) SC 1347 Insulin Aspart 0 AT BEDTIME 08/21 2200 AC 08/23 SC 2148 Insulin Aspart 0 TIDAC 08/21 1200 AC 08/23 SC 1205 Insulin Detemir 5 UNITS BID 08/22 2200 AC 08/24 SC 0839 Lidocaine 1 ML .STK-MED ONE 08/24 1134 DC ID 08/24 1135 Melatonin 6 MG AT BEDTIME 08/20 2345 AC 08/23 PO 2128 Methadone HCl 5 MG BID 08/24 1000 AC 08/24 PO 0844 Methadone HCl 10 MG BID 08/23 1000 DC 08/23 PO 08/23 2201 2125 Mirtazapine 15 MG AT BEDTIME 08/20 2345 AC 08/23 PO 2131 Multivitamins 1 TAB DAILY 08/21 1009 AC 08/24 PO 0839 Nicotine 21 MG DAILY 08/21 1000 AC 08/24 TOP 0839 Omeprazole 20 MG 0700,1600 08/20 2334 AC 08/24 PO 0619 Ondansetron HCl 4 MG Q6P PRN 08/20 2345 AC 08/22 IV 0839 Quetiapine Fumarate 200 MG AT BEDTIME 08/21 0015 AC 08/23 PO 2127 Vancomycin HCl 0 WEDNESDAY WED WEDNESDAY .. 08/20 2315 DC IV Results Pertinent Lab Results: Laboratory Tests 08/24 08/24 08/24 1215 1150 0840 Chemistry Sodium Pending Potassium Pending Chloride Pending Carbon Dioxide Pending Anion Gap Pending BUN Pending Creatinine Pending BUN/Creatinine Ratio Pending Magnesium Pending Albumin Pending Hematology CBC w Diff NO MAN DIFF REQ WBC (4.8 - 10.8 /CUMM) 8.4 RBC (4.70 - 6.10 /CUMM) 3.16 L Hgb (14.0 - 18.0 G/DL) 8.9 L Hct (42 - 52 %) 27.2 L MCV (80.0 - 94.0 FL) 86.1 MCH (27.0 - 31.0 PG) 28.3 RDW (11.5 - 14.5 %) 15.6 H Plt Count (130 - 400 /CUMM) 167 MPV (7.4 - 10.4 FL) 9.5 Gran % (42.2 - 75.2 %) 69.1 Lymphocytes % (20.5 - 51.1 %) 21.6 Monocytes % (1.7 - 9.3 %) 5.9 Eosinophils % (0 - 5 %) 3.0 Basophils % (0.0 - 2.0 %) 0.4 Absolute Granulocytes (1.4 - 6.5 /CUMM) 5.8 Absolute Lymphocytes (1.2 - 3.4 /CUMM) 1.8 Absolute Monocytes (0.10 - 0.60 /CUMM) 0.5 Absolute Eosinophils (0.0 - 0.7 /CUMM) 0.3 Absolute Basophils (0.0 - 0.2 /CUMM) 0 PUBS MCHC (33.0 - 37.0 G/DL) 32.8 L Serology Hep Bs Antibody Pending Cancelled Toxicology Random Vancomycin (ug/ml) 14.5 08/23 08/23 1900 0650 Chemistry Sodium (137 - 145 mmol/L) 135 L Potassium (3.5 - 5.1 mmol/L) 4.3 Chloride (98 - 107 mmol/L) 99 Carbon Dioxide (22 - 30 mmol/L) 26 Anion Gap (5 - 16) 10 BUN (9 - 20 mg/dL) 25 H Creatinine (0.7 - 1.2 mg/dL) 6.9 *H Estimated GFR (>60 ml/min) 9 L BUN/Creatinine Ratio (7 - 25 %) 3.6 L Hematology CBC w Diff NO MAN DIFF REQ WBC (4.8 - 10.8 /CUMM) 7.5 RBC (4.70 - 6.10 /CUMM) 3.19 L Hgb (14.0 - 18.0 G/DL) 9.0 L Hct (42 - 52 %) 27.7 L MCV (80.0 - 94.0 FL) 86.9 MCH (27.0 - 31.0 PG) 28.3 RDW (11.5 - 14.5 %) 15.9 H Plt Count (130 - 400 /CUMM) 162 MPV (7.4 - 10.4 FL) 9.9 Gran % (42.2 - 75.2 %) 63.0 Lymphocytes % (20.5 - 51.1 %) 27.7 Monocytes % (1.7 - 9.3 %) 4.8 Eosinophils % (0 - 5 %) 4.3 Basophils % (0.0 - 2.0 %) 0.2 Absolute Granulocytes (1.4 - 6.5 /CUMM) 4.7 Absolute Lymphocytes (1.2 - 3.4 /CUMM) 2.1 Absolute Monocytes (0.10 - 0.60 /CUMM) 0.4 Absolute Eosinophils (0.0 - 0.7 /CUMM) 0.3 Absolute Basophils (0.0 - 0.2 /CUMM) 0 PUBS MCHC (33.0 - 37.0 G/DL) 32.6 L Urines Urine Color (YEL,AMB,STR) YEL Urine Clarity (CLEAR) CLEAR Urine pH (5.0 - 8.0) 7.0 Ur Specific [place] (1.001 - 1.035) 1.020 Urine Protein (NEG,<30 MG/DL) >=300 H Urine Ketones (NEG) NEG Urine Nitrite (NEG) NEG Urine Bilirubin (NEG) NEG Urine Urobilinogen (0.1 - 1.0 EU/dl) 0.2 Ur Leukocyte Esterase (NEG) NEG Ur Microscopic SEDIMENT EXAMINED Urine RBC (0 - 5 /HPF) FEW H Urine WBC (0 - 2 /HPF) 10-15 H Ur Epithelial Cells (NONE,FEW) FEW Urine Hemoglobin (NEG) TRACE-INTACT H Urine Glucose (N MG/DL) 250 H 08/22 2300 Chemistry Troponin I Cancelled Toxicology Random Vancomycin (ug/ml) 17.5
--- NOTE | 2016-08-24 15:56 | PN- Infect Dx ---
Subjective Subjective: Afebrile. He continues to report chills but has had no fevers. He continues to report a cough, which is less productive, and mild left chest discomfort but denies any shortness of breath. Objective Last 24 Hrs of Vital Signs/I&O Vital Signs Date Time Temp Pulse Resp B/P Pulse O2 O2 Flow FiO2 Ox Delivery Rate 08/24 0839 82 144/72 08/24 0839 82 144/72 08/24 0838 82 144/72 08/24 0600 98.2 86 18 140/78 95 Room Air 08/24 0218 97.9 73 18 112/70 92 Room Air 08/24 0000 Room Air 08/23 2125 98.5 83 16 152/82 08/23 2125 98.5 83 16 152/82 08/23 2120 98.5 83 16 152/82 94 Room Air 08/23 1600 98.0 80 16 135/74 94 Room Air Intake & Output 08/24 1600 08/24 0800 08/24 0000 Intake Total 500 100 480 Output Total 325 400 Balance 175 100 80 Intake, IV 0 Intake, Oral 500 100 480 Number 0 Bowel Movements Output, Urine 325 400 Patient 158 lb Weight Physical Exam Other Physical Findings: He appears comfortable, currently on dialysis, in no acute distress Lungs crackles at the left base Heart regular rhythm with no murmur Extremities left BKA stump with swelling slightly decreased status post recent aspiration, still fluctuant, but with no erythema or tenderness Results Last 24 Hours of Lab Results: Laboratory Tests 08/24 08/24 08/24 1215 1150 0840 Chemistry Sodium (137 - 145 mmol/L) 134 L Potassium (3.5 - 5.1 mmol/L) 5.1 Chloride (98 - 107 mmol/L) 97 L Carbon Dioxide (22 - 30 mmol/L) 24 Anion Gap (5 - 16) 13 BUN (9 - 20 mg/dL) 40 H Creatinine (0.7 - 1.2 mg/dL) 8.3 *H Estimated GFR (>60 ml/min) 7 L BUN/Creatinine Ratio (7 - 25 %) 4.8 L Magnesium (1.6 - 2.3 mg/dL) 1.9 Albumin (3.5 - 5.0 g/dL) 3.1 L Hematology CBC w Diff NO MAN DIFF REQ WBC (4.8 - 10.8 /CUMM) 8.4 RBC (4.70 - 6.10 /CUMM) 3.16 L Hgb (14.0 - 18.0 G/DL) 8.9 L Hct (42 - 52 %) 27.2 L MCV (80.0 - 94.0 FL) 86.1 MCH (27.0 - 31.0 PG) 28.3 RDW (11.5 - 14.5 %) 15.6 H Plt Count (130 - 400 /CUMM) 167 MPV (7.4 - 10.4 FL) 9.5 Gran % (42.2 - 75.2 %) 69.1 Lymphocytes % (20.5 - 51.1 %) 21.6 Monocytes % (1.7 - 9.3 %) 5.9 Eosinophils % (0 - 5 %) 3.0 Basophils % (0.0 - 2.0 %) 0.4 Absolute Granulocytes (1.4 - 6.5 /CUMM) 5.8 Absolute Lymphocytes (1.2 - 3.4 /CUMM) 1.8 Absolute Monocytes (0.10 - 0.60 /CUMM) 0.5 Absolute Eosinophils (0.0 - 0.7 /CUMM) 0.3 Absolute Basophils (0.0 - 0.2 /CUMM) 0 PUBS MCHC (33.0 - 37.0 G/DL) 32.8 L Serology Hep Bs Antibody (NONREACTIVE) REACTIVE Cancelled Toxicology Random Vancomycin (ug/ml) 14.5 08/23 1900 Urines Urine Color (YEL,AMB,STR) YEL Urine Clarity (CLEAR) CLEAR Urine pH (5.0 - 8.0) 7.0 Ur Specific [place] (1.001 - 1.035) 1.020 Urine Protein (NEG,<30 MG/DL) >=300 H Urine Ketones (NEG) NEG Urine Nitrite (NEG) NEG Urine Bilirubin (NEG) NEG Urine Urobilinogen (0.1 - 1.0 EU/dl) 0.2 Ur Leukocyte Esterase (NEG) NEG Ur Microscopic SEDIMENT EXAMINED Urine RBC (0 - 5 /HPF) FEW H Urine WBC (0 - 2 /HPF) 10-15 H Ur Epithelial Cells (NONE,FEW) FEW Urine Hemoglobin (NEG) TRACE-INTACT H Urine Glucose (N MG/DL) 250 H Last 24 Hours of Arpit Results: Blood cultures August 20 remain negative Left BKA stump aspiration earlier today with culture pending, and gram stain revealing few white blood cells and no organisms seen Recent Imaging Studies: Left BKA stump ultrasound August 22 revealed a small fluid collection within the soft tissues of the left lower extremity, measuring 2.8 x 0.2 x 2.5 cm Left upper extremity fistula ultrasound reveals no evidence of any active infection, with a patent left brachial artery to transposed cephalic vein primary AV fistula Assessment/Plan Impression: Stable now on Ceftriaxone, Day 5 of treatment for presumed left lower lobe pneumonia, with one positive blood culture sent from the dialysis unit one day prior to admission positive for Staph coag negative, which is a presumed contaminant. He is in no respiratory distress but does continue to report chills and has persistent crackles at the left base, suggesting an ongoing infection. He did undergo aspiration of the left BKA stump swelling, with bloody fluid obtained, suggesting a possible hematoma related to trauma from the prosthesis. Suggestion: 1. Would repeat chest x-ray 2. Follow-up aspiration of the left BKA stump fluid collection 3. Continue Ceftriaxone pending above
--- NOTE | 2016-08-24 17:15 | ULTRASOUND REPORT ---
EXAMINATION: 1. Superficial ultrasound of right knee 2. Ultrasound-guided aspiration of fluid collection at the site of right knee amputation. CLINICAL INFORMATION: Left stump fluid collection. Aspiration requested. COMPARISON: Superficial ultrasound 08/22/2016 INTERVENTIONAL RADIOLOGIST: Francisco Roy M.D. TECHNIQUE: Informed consent was obtained from the patient was obtained prior to the procedure. During this process, the procedure and potential alternatives were explained along with the intended outcome and benefits. The risks of the procedure including the possibility of an unsuccessful procedure, as well as the risk of not doing the procedure were discussed. The patient was given the opportunity to ask questions regarding the procedure and competent to make decisions. A signed consent form which documents this discussion was placed in the medical record. Following informed consent, the patient was placed supine on the procedure table. Diagnostic imaging was performed of the anterior right knee which demonstrated a small 3.2 x 0.4 x 2.6 cm fluid collection. The skin was marked and then prepped and draped in usual sterile fashion. Under direct sonographic guidance, a 20-gauge spinal needle was advanced into the collection. Approximately 5 mL of dark, nonclotting blood-like fluid was aspirated. There was complete collapse of the fluid collection. The needle was removed and pressure held for approximately 5 minutes until hemostasis was achieved. A sterile dressing was placed. Findings: Suspected hematoma with complete interval reduction status post ultrasound-guided aspiration. Fluid sent for requested analysis. Impression: Successful ultrasound-guided aspiration of small fluid collection within the anterior knee. Pathology pending.
--- NOTE | 2016-08-24 17:43 | RADIOLOGY REPORT ---
EXAMINATION: XR CHEST CLINICAL INFORMATION: Productive cough and chills COMPARISON: 08/20/2016 TECHNIQUE: 2 views of the chest were obtained. FINDINGS: The lungs are well expanded. There is a patchy left basilar airspace opacity. The right lung is clear. No pleural effusion or pneumothorax. The cardiomediastinal silhouette is within normal limits. No acute osseous abnormality. IMPRESSION: Patchy left basilar opacity is suspicious for pneumonia in this clinical setting. This has increased from previous.
[2016-08-24 18:30] VITALS: BP 102/42
[2016-08-24 18:58] VITALS: BP 130/80
[2016-08-24 22:30] VITALS: BP 124/80
[2016-08-25 07:05] VITALS: BP 140/74
--- NOTE | 2016-08-25 07:25 | PN- Housestaff ---
See Addendum Subjective Follow-up For: -Healthcare associated pneumonia -End stage renal disease on dialysis -Left BKA cyst -Diabetes mellitus -Hypertension Subjective: Patient was seen and examined today, no overnight events reported by the nurse or the patient, vital signs are stable, MAXIMUM TEMPERATURE 99.8. Patient denies any abdominal pain, continuous to have throbbing pain 7/10 of the left below knee amputation stump, denies fever, reports chills and night sweats. Patient denies chest pain, shortness of breath, palpitation, continues to have productive cough of green sputum that started to become thinner. Review of Systems Constitutional: Reports: see HPI. Objective Last 24 Hrs of Vital Signs/I&O Vital Signs Date Time Temp Pulse Resp B/P Pulse O2 O2 Flow FiO2 Ox Delivery Rate 08/25 1000 70 138/70 08/25 0959 70 138/70 08/25 0959 70 138/70 08/25 0705 98.8 84 18 140/74 93 Room Air 08/25 0000 92 Room Air 08/24 2230 99.6 88 20 124/80 92 08/24 1858 99.3 79 20 130/80 93 Room Air 08/24 1830 98.9 80 20 102/42 97 Room Air Intake & Output 08/25 1600 08/25 0800 08/25 0000 Intake Total 200 500 Output Total Balance 200 500 Intake, Oral 200 500 Patient 76.26 kg Weight Physical Exam General Appearance: Alert, Oriented X3, Cooperative, No Acute Distress Skin: No Rashes, No Breakdown, No Significant Lesion HEENT: Atraumatic, PERRLA, EOMI, Mucous Membr. moist/pink Neck: Supple, No JVD Cardiovascular: Regular Rate, Normal S1, Normal S2, No Murmurs Lungs: bilateral normal air entery transmitted sounds no wheeze Abdomen: Normal Bowel Sounds, Soft, No Tenderness Neurological: Normal Speech, Strength at 5/5 X4 Ext, Normal Tone, Sensation Intact, Cranial Nerves 3-12 NL, Reflexes 2+ Extremities: No Clubbing, No Cyanosis, No Edema, Normal Pulses, left BKA stump cyst 2x2 flactuating non tender, no skin changes Assessment/Plan Assessment: Mr. Doll is 50 year old male with past medical history significant for end- stage renal disease on dialysis, bilateral below knee amputation due to diabetic foot ulcers, hypertension, diabetes mellitus, hyperlipidemia, peripheral neuropathy, heroin abuse(sniffing, no IV) who presented on 08/20/16 with chief complaint of fever, chills, productive cough of green sputum. Chest x-ray 08/20/16 FINDINGS: There is tortuosity aorta. Cardiac size anita and vasculature are within normal limits. There is a patchy density at the left base with slight elevation of the left hemidiaphragm. There is no consolidation in the right lung or left upper lung. There is some left apical thickening. There is no pneumothorax or pleural fluid. IMPRESSION: Patchy left base density could represent pneumonia or atelectasis. Chest x-ray 08/24/16 IMPRESSION: Patchy left basilar opacity is suspicious for pneumonia in this clinical setting. This has increased from previous. #Healthcare associated pneumonia -On admission MAXIMUM TEMPERATURE of 99.2, rest of vital signs are stable, white blood cell 6.7 -Chest x-ray is suggestive for pneumonia -Patient presented with history of fever and chills Fever and chills for the last 2 days, patient received a dose of ceftazidime and vancomycin after his dialysis on Saturday 08/19 at [facility] in [place], blood cultures was obtained at that time, one tube is positive for staphylococcal [place] that represents contamination. -Discontinue vancomycin and ceftaz -Continue ceftriaxone 1000 mg every 24 Day#4 -Mucinex 600mg PO Q12H -Blood culture negative so far -Follow up sputum culture pending receipt -Follow up urine Legionella and strep antigen pending receipt (patient makes very small amount of urine) -Flu rapid test pending #Other source of infection -Patient reported history of left BKA stump cyst 34 that's painful although no signs of inflammation were appreciated -Ultrasound was obtained that revealed small fluid collection that reflect small hematoma or small organizing fluid collection/abscess -Ultrasound-guided needle aspiration was obtained yesterday, Gram stain didn't reveal any organism, culture pending -Left arm hemodialysis fistula graft Doppler ultrasound was obtained, no sonographic findings that suggest active source of infection from the fistula -Patient maintains to have low-grade temps 99.8, chills, night sweats however no WBC since admission, the symptoms can be explained as opioid withdrawal symptoms -Per ID recommendation, will discontinue antibiotic after today's dose and will follow off antibiotic #Acute coronary disease -Patient reported left achy chest pain, not radiated to arm or neck, not associated with shortness of breath or palpitation -Fist EKG showed some Q waves changes -Repeated EKG and troponin are negative -Chest pain is reproducible mostly muscular in origin #ESRD on dialysis -Dialysis schedule Wednesday, Wednesday and Wednesday -Nephro consult was obtained, thanks for recommendation -Continue Depakote and alpha 6000 unit with dialysis -Continue Nephrocaps 1 tab by mouth daily #Opioid dependence: -Patient reported history of heroin abuse daily sniffing, denied IV use -HIV negative -Hepatic panel negative -Rapid methadone taper, methadone 20 every 122 doses, 15 mg every 12 hours 2 doses, 10 mg every 12 hours 2 doses, 5 mg every 122 doses and then stop -Urine toxicology pending receipt -Nicotine patch 21 mg -Patient is on other psych medication, Seroquel 200 mg at bedtime, mirtazapine 15 mg at bedtime, clonidine 0.1 mg twice a day by mouth -Psychiatric recommendation was obtained, thanks for the input -Will obtain healthcare social worker consultation #Diabetes: -Continue Accu check -Medium dose sliding scale -Levemir 5 units twice a day #Hypertension and hyperlipidemia -Continue atorvastatin 10 mg by mouth daily -Continue carvedilol 25 mg by mouth twice a day -Continue Norvasc sac 10 mg by mouth daily #GERD -Continue omeprazole 20 mg twice a day Code Full Diet carbohydrate 3 DVT prophylaxis heparin subcutaneous (agent is refusing anticoagulation) Consultation nephrology,psychiatric, ID, IR Problem List: 1. Pneumonia 2. End stage renal disease on dialysis 3. Opioid abuse Pain Ratin Pain Location: Left BKA stump cyst Pain Goal: Pain 4 or less Pain Plan: Mild pain pathway Tomorrow's Labs & Rationales: NONE
--- NOTE | 2016-08-25 08:30 | NUR ---
PT STATES HE WANTS TO FINISH BREAKFAST FIRST, THEN TAKE ALL HIS 0800 MEDS, PT STATES HE WILL CALL WHEN HE IS READY TO TAKE HIS MEDS.
--- NOTE | 2016-08-25 13:45 | NUR ---
Daniellisettekacey received yesterday via electronic sales order processor (twice). This patient is a 50 year old man, admitted to the hospital on 08/20/16 with a community acquired pnuemonia. Of note, patient is on chronic hemodialysis at [facility] in [place] for the past 1.5 years. Patient lives with his in [place]; utilizes public transportation for dialysis and other medical appointments. I met with patient yesterday, and again this morning. He is awake and alert, pleasant and engages in interview. Upon initial query, patient reports "I came to [place] for one thing; I didn't know I had pnuemonia". By review of medical record, patient is in search of treatment for opiate dependence, and was placed on a methadone taper. Magui is interested in outpatient follow up, which I am happy to assist him with, but his dialysis 3x/week and his transportation may be barriers. Magui reports spending $93.00/month for transportation to and from dialysis as well as other medical appointments (specifically vascular). Magui utilizes [employer], and I have accessed their web site and I am not certain if the patient would be eligible for their "half fare" program (due to his disability status). With patients permission, I called the delinquency prevention social worker at the dialysis unit to collaborate. Await return call.
--- NOTE | 2016-08-25 14:23 | PN- Infect Dx ---
Subjective Subjective: Afebrile. He feels improved with no further chest discomfort and minimal cough. He does note some discomfort over the left BKA stump. Objective Last 24 Hrs of Vital Signs/I&O Vital Signs Date Time Temp Pulse Resp B/P Pulse O2 O2 Flow FiO2 Ox Delivery Rate 08/25 1000 70 138/70 08/25 0959 70 138/70 08/25 0959 70 138/70 08/25 0705 98.8 84 18 140/74 93 Room Air 08/25 0000 92 Room Air 08/24 2230 99.6 88 20 124/80 92 08/24 1858 99.3 79 20 130/80 93 Room Air 08/24 1830 98.9 80 20 102/42 97 Room Air Intake & Output 08/25 1600 08/25 0800 08/25 0000 Intake Total 200 500 Output Total Balance 200 500 Intake, Oral 200 500 Patient 168 lb Weight Physical Exam Other Physical Findings: He appears comfortable in no acute distress Lungs bibasilar crackles Heart regular rhythm with no murmur Extremities left AKA stump with decreased swelling, nontender to palpation and with no erythema Results Last 24 Hours of Lab Results: No labs from today Last 24 Hours of Arpit Results: Left BKA stump aspiration August 24 negative Recent Imaging Studies: Chest x-ray August 24, personally reviewed, reveals persistent patchy left basilar opacity Assessment/Plan Impression: Stable on Ceftriaxone, Day 6 of treatment for presumed left lower lobe pneumonia , with improvement in his respiratory symptoms. The positive blood culture sent from the dialysis unit one day prior to admission was positive for Staph coag negative, which presumably represents a contaminant. The swelling over the left BKA stump is of unclear etiology, with aspiration yielding bloody fluid, likely representing a hematoma, perhaps secondary to trauma from the prosthesis, with the culture so far negative. Suggestion: 1. Follow-up aspiration of the left BKA stump fluid collection 2. Discontinue Ceftriaxone after today's dose and follow off antibiotics
[2016-08-25 14:54] VITALS: BP 120/77
[2016-08-25] MEDS ORDERED: GUAIFENESIN ER600 MG PO (16:15)
[2016-08-25] MEDS ORDERED: PROCRIT3000 UNIT/ IV (16:17)
[2016-08-25] MEDS ORDERED: NEPHRO-VITE TA0.8 MG PO (16:17)
--- NOTE | 2016-08-25 16:19 | Patient Discharge Instructions ---
Discharge Instructions General Discharge Information You were seen/treated for: Pneumonia You had these procedures: Left below the knee amputation stump cyst aspiration Special Instructions: -Please follow-up with your primary care physician within 1 week after discharge -Please continue hemodialysis on Wednesday, Wednesday and Wednesday -Please follow social services analyst recommendation for outpatient psychiatric follow-up Diet Recommended Diet: Diabetic, Renal Dialysis Acute Coronary Syndrome Inclusion Criteria At DC or during hospital stay patient has or had the following: ACS DIAGNOSIS No Discharge Core Measures Meds if any: Prescribed or Continued at Discharge Meds if any: NOT Prescribed or Continued at Discharge Congestive Heart Failure Inclusion Criteria At DC or during hospital stay patient has or had the following: CHF DIAGNOSIS No Discharge Core Measures Meds if any: Prescribed or Continued at Discharge Meds if any: NOT Prescribed or Continued at Discharge Cerebrovascular accident Inclusion Criteria At DC or during hospital stay patient has or had the following: CVA/TIA Diagnosis No Discharge Core Measures Meds if any: Prescribed or Continued at Discharge Meds if any: NOT Prescribed or Continued at Discharge Venous thromboembolism Inclusion Criteria VTE Diagnosis No VTE Type NONE VTE Confirmed by (Test) NONE Discharge Core Measures - Per Current guidelines, there needs to be overlap - treatment for the first 5 days of Warfarin therapy. - If discharged on Warfarin prior to 5 days of - overlap therapy, the patient will need to be - assessed for post discharge needs including - *Post discharge parental anticoagulation - *Warfarin and/or parental anticoagulation education - *Follow up date to check INR post discharge At least 5 days overlap therapy as Inpatient Yes Meds if any: Prescribed or Continued at Discharge Note: Overlap Therapy is Warfarin and Anticoagulant Meds if any: NOT Prescribed or Continued at Discharge
[2016-08-25 22:36] VITALS: BP 120/68
[2016-08-26 06:55] VITALS: BP 142/78
--- NOTE | 2016-08-26 07:24 | PN- Housestaff ---
Subjective Follow-up For: -Healthcare associated pneumonia -End stage renal disease on dialysis -Left BKA cyst -Diabetes mellitus -Hypertension Subjective: Patient was seen and examined today, no overnight events reported by the nurse of the patient, vital signs are stable. Patient offers no new complaints. He wants to be discharged today, patient is due for dialysis today. Review of Systems Constitutional: Reports: see HPI. Objective Last 24 Hrs of Vital Signs/I&O Vital Signs Date Time Temp Pulse Resp B/P Pulse O2 O2 Flow FiO2 Ox Delivery Rate 08/26 0655 98.5 81 18 142/78 97 Room Air 08/25 2236 98.1 77 20 120/68 99 Room Air 08/25 1454 98.1 88 20 120/77 96 Intake & Output 08/26 1600 08/26 0800 08/26 0000 Intake Total 100 600 Output Total 325 Balance -225 600 Intake, IV 0 Intake, Oral 100 600 Number 0 Bowel Movements Output, Urine 325 Physical Exam General Appearance: Alert, Oriented X3, Cooperative, No Acute Distress Skin: No Rashes, No Breakdown, No Significant Lesion HEENT: Atraumatic, PERRLA, EOMI, Mucous Membr. moist/pink Neck: Supple, No JVD Cardiovascular: Regular Rate, Normal S1, Normal S2, No Murmurs Lungs: Clear to Auscultation, Normal Air Movement Abdomen: Normal Bowel Sounds, Soft, No Tenderness Neurological: Normal Speech, Strength at 5/5 X4 Ext, Normal Tone, Sensation Intact, Cranial Nerves 3-12 NL, Reflexes 2+ Extremities: No Clubbing, No Cyanosis, No Edema, Normal Pulses Assessment/Plan Assessment: Mr. Doll is 50 year old male with past medical history significant for end- stage renal disease on dialysis, bilateral below knee amputation due to diabetic foot ulcers, hypertension, diabetes mellitus, hyperlipidemia, peripheral neuropathy, heroin abuse(sniffing, no IV) who presented on 08/20/16 with chief complaint of fever, chills, productive cough of green sputum. Chest x-ray 08/20/16 FINDINGS: There is tortuosity aorta. Cardiac size anita and vasculature are within normal limits. There is a patchy density at the left base with slight elevation of the left hemidiaphragm. There is no consolidation in the right lung or left upper lung. There is some left apical thickening. There is no pneumothorax or pleural fluid. IMPRESSION: Patchy left base density could represent pneumonia or atelectasis. Chest x-ray 08/24/16 IMPRESSION: Patchy left basilar opacity is suspicious for pneumonia in this clinical setting. This has increased from previous. #Healthcare associated pneumonia -On admission MAXIMUM TEMPERATURE of 99.2, rest of vital signs are stable, white blood cell 6.7 -Chest x-ray is suggestive for pneumonia -Patient presented with history of fever and chills Fever and chills for the last 2 days, patient received a dose of ceftazidime and vancomycin after his dialysis on Saturday 08/19 at [facility] in [place], blood cultures was obtained at that time, one tube is positive for staphylococcal Warneri that represents contamination. -Discontinue vancomycin and ceftaz -Discontinue ceftriaxone and watch off antibiotics given clinical improvement, no leukocytosis, patient maintained afebrile -Mucinex 600mg PO Q12H -Blood culture negative so far -Follow up urine Legionella and strep antigen pending receipt (patient makes very small amount of urine) -Flu rapid test and unobtainable, was sent out for PCR pending results #Other source of infection -Patient reported history of left BKA stump cyst 34 that's painful although no signs of inflammation were appreciated -Ultrasound was obtained that revealed small fluid collection that reflect small hematoma or small organizing fluid collection/abscess -Ultrasound-guided needle aspiration was obtained, Gram stain didn't reveal any organism, culture is negative so far -Left arm hemodialysis fistula graft Doppler ultrasound was obtained, no sonographic findings that suggest active source of infection from the fistula -Patient had low-grade temps 99.8, chills, night sweats however no WBC since admission, the symptoms can be explained as opioid withdrawal symptoms -Per ID recommendation was obtained, thanks for recommendation #Acute coronary disease -Patient reported left achy chest pain, not radiated to arm or neck, not associated with shortness of breath or palpitation -Fist EKG showed some Q waves changes -Repeated EKG and troponin are negative -Chest pain is reproducible mostly muscular in origin #ESRD on dialysis -Dialysis schedule Wednesday, Wednesday and Wednesday -Nephro consult was obtained, thanks for recommendation -Continue Depakote and alpha 6000 unit with dialysis -Continue Nephrocaps 1 tab by mouth daily -Continue calcium acetate 2 tabs before meals #Opioid dependence: -Patient reported history of heroin abuse daily sniffing, denied IV use -HIV negative -Hepatic panel negative -Rapid methadone taper, methadone 20 every 122 doses, 15 mg every 12 hours 2 doses, 10 mg every 12 hours 2 doses, 5 mg every 122 doses and then stop -Urine toxicology pending receipt -Nicotine patch 21 mg -Patient is on other psych medication, Seroquel 200 mg at bedtime, mirtazapine 15 mg at bedtime, clonidine 0.1 mg twice a day by mouth -Psychiatric recommendation was obtained, thanks for the input -railroad worker consultation was obtained, [facility] facility was reviewed with the patient and to be his choice to choose one of them for follow-up #Diabetes: -Continue Accu check -Medium dose sliding scale -Levemir 5 units twice a day #Hypertension and hyperlipidemia -Continue atorvastatin 10 mg by mouth daily -Continue carvedilol 25 mg by mouth twice a day -Continue Norvasc sac 10 mg by mouth daily #GERD -Continue omeprazole 20 mg twice a day Code Full Diet carbohydrate 3 DVT prophylaxis heparin subcutaneous (patient is refusing anticoagulation) Consultation nephrology,psychiatric, ID, IR, social services manager Problem List: 1. Pneumonia 2. End stage renal disease on dialysis Pain Ratin Pain Location: Left below knee amputation stump Pain Goal: Pain 4 or less Pain Plan: Mild pain pathway Tomorrow's Labs & Rationales: None
--- NOTE | 2016-08-26 09:34 | PN- Nephrology ---
Assessment/Plan Assessment: End-stage renal disease: Stable from renal standpoint. Dialysis in process today according to Wednesday schedule. Hyperphophatemia:increase phoslo to 2 tabs qac Coag-negative staph bacteremia: agree that most likely a contaminant. Healthcare associated pneumonia: To stop antibiotics per ID Left stump fluid collection: Status IR guided aspiration. culture NGTD Suggestion: HD today Epogen 3x/week with HD Please increase phoslo to 2 tabs PO with meals (QAC) Subjective Subjective: No acute events seen on HD afebrile Review of Systems: no chest pain, sob no fever/chills Objective Vital Signs and I&Os Vital Signs Date Time Temp Pulse Resp B/P Pulse O2 O2 Flow FiO2 Ox Delivery Rate 08/26 0655 98.5 81 18 142/78 97 Room Air 08/25 2236 98.1 77 20 120/68 99 Room Air 08/25 1454 98.1 88 20 120/77 96 08/25 1000 70 138/70 08/25 0959 70 138/70 08/25 0959 70 138/70 Intake & Output 08/26 1600 08/26 0400 08/25 1600 08/25 0400 08/24 1600 08/24 0400 Intake Total 600 800 500 600 480 Output Total 325 325 400 Balance -325 600 800 500 275 80 Intake, IV 0 Intake, Oral 600 800 500 600 480 Number 0 Bowel Movements Output, Urine 325 325 400 Patient 168 lb 158 lb Weight Physical Exam: General: NAD, A+O x3. HEENT: NC/AT. No icterus. Moist mucosa Neck: negative for POP, JVD CV: RRR, no m/r/g Pulm: CTAB, no rales Abd: soft, NT Lower Ext: neg edema +BKAs Upper Ext: AVF+ thrill/bruit Back: negative for CVA tenderness Neuro: neg tremor, asterixis Skin: no rash, jaundice : no navarro catheter Current Medications: Current Medications Sig/Malu Start time Last Medication Dose Route Stop Time Status Admin Acetaminophen 650 MG Q6P PRN 08/20 2145 AC 08/23 PO 2124 Albuterol Sulfate 2 PUF Q4P PRN 08/23 0845 AC 08/23 INH 1206 Amlodipine Besylate 10 MG DAILY 08/21 1000 AC 08/25 PO 1000 Atorvastatin Calcium 10 MG 1700 08/21 1700 AC 08/25 PO 1742 Calcium Acetate 667 MG WM 08/21 1200 AC 08/26 PO 0832 Carvedilol 25 MG BID 08/21 1000 AC 08/25 PO 2120 Ceftriaxone Sodium 1,000 MG 1600 08/25 1600 AC 08/25 IV 1742 Ceftriaxone Sodium 1,000 MG Q24H 08/25 1430 DC IV Ceftriaxone Sodium 1,000 MG Q24H 08/22 1600 DC 08/24 IV 1758 Clonidine 0.1 MG BID 08/21 1000 AC 08/25 PO 2120 Epoetin Antonio 6,000 UNIT MoWeFr PRN 08/21 1115 AC IV Guaifenesin 600 MG Q12 08/21 1447 AC 08/25 PO 2127 Heparin Sodium 5,000 UNIT Q8 08/24 2200 AC 08/25 (Porcine) SC 2120 Ibuprofen 400 MG ONCE ONE 08/25 1500 DC 08/25 PO 08/25 1501 1514 Insulin Aspart 0 AT BEDTIME 08/21 2200 AC 08/23 SC 2148 Insulin Aspart 0 TIDAC 08/21 1200 AC 08/26 SC 0832 Insulin Detemir 5 UNITS BID 08/22 2200 AC 08/25 SC 2120 Melatonin 6 MG AT BEDTIME 08/20 2345 AC 08/25 PO 2120 Methadone HCl 5 MG BID 08/24 1000 AC 08/25 PO 2120 Mirtazapine 15 MG AT BEDTIME 08/20 2345 AC 08/25 PO 2120 Multivitamins 1 TAB DAILY 08/21 1009 AC 08/25 PO 0959 Nicotine 21 MG DAILY 08/21 1000 AC 08/25 TOP 1000 Omeprazole 20 MG 0700,1600 08/20 2334 AC 08/25 PO 1741 Ondansetron HCl 4 MG Q6P PRN 08/20 2345 AC 08/22 IV 0839 Patient Medication 1 ED .STK-MED ONE 08/25 1402 DC Teaching ED 08/25 1403 Quetiapine Fumarate 200 MG AT BEDTIME 08/21 0015 AC 08/25 PO 2120 Results Pertinent Lab Results: Laboratory Tests 08/24 08/24 08/24 1215 1150 0840 Chemistry Sodium (137 - 145 mmol/L) 134 L Potassium (3.5 - 5.1 mmol/L) 5.1 Chloride (98 - 107 mmol/L) 97 L Carbon Dioxide (22 - 30 mmol/L) 24 Anion Gap (5 - 16) 13 BUN (9 - 20 mg/dL) 40 H Creatinine (0.7 - 1.2 mg/dL) 8.3 *H Estimated GFR (>60 ml/min) 7 L BUN/Creatinine Ratio (7 - 25 %) 4.8 L Magnesium (1.6 - 2.3 mg/dL) 1.9 Albumin (3.5 - 5.0 g/dL) 3.1 L Hematology CBC w Diff NO MAN DIFF REQ WBC (4.8 - 10.8 /CUMM) 8.4 RBC (4.70 - 6.10 /CUMM) 3.16 L Hgb (14.0 - 18.0 G/DL) 8.9 L Hct (42 - 52 %) 27.2 L MCV (80.0 - 94.0 FL) 86.1 MCH (27.0 - 31.0 PG) 28.3 RDW (11.5 - 14.5 %) 15.6 H Plt Count (130 - 400 /CUMM) 167 MPV (7.4 - 10.4 FL) 9.5 Gran % (42.2 - 75.2 %) 69.1 Lymphocytes % (20.5 - 51.1 %) 21.6 Monocytes % (1.7 - 9.3 %) 5.9 Eosinophils % (0 - 5 %) 3.0 Basophils % (0.0 - 2.0 %) 0.4 Absolute Granulocytes (1.4 - 6.5 /CUMM) 5.8 Absolute Lymphocytes (1.2 - 3.4 /CUMM) 1.8 Absolute Monocytes (0.10 - 0.60 /CUMM) 0.5 Absolute Eosinophils (0.0 - 0.7 /CUMM) 0.3 Absolute Basophils (0.0 - 0.2 /CUMM) 0 PUBS MCHC (33.0 - 37.0 G/DL) 32.8 L Serology Hep Bs Antibody (NONREACTIVE) REACTIVE Cancelled Toxicology Random Vancomycin (ug/ml) 14.5 08/23 1900 Urines Urine Color (YEL,AMB,STR) YEL Urine Clarity (CLEAR) CLEAR Urine pH (5.0 - 8.0) 7.0 Ur Specific [place] (1.001 - 1.035) 1.020 Urine Protein (NEG,<30 MG/DL) >=300 H Urine Ketones (NEG) NEG Urine Nitrite (NEG) NEG Urine Bilirubin (NEG) NEG Urine Urobilinogen (0.1 - 1.0 EU/dl) 0.2 Ur Leukocyte Esterase (NEG) NEG Ur Microscopic SEDIMENT EXAMINED Urine RBC (0 - 5 /HPF) FEW H Urine WBC (0 - 2 /HPF) 10-15 H Ur Epithelial Cells (NONE,FEW) FEW Urine Hemoglobin (NEG) TRACE-INTACT H Urine Glucose (N MG/DL) 250 H
[2016-08-26 10:06] LABS: ABSOLUTE BASOPHIL COUNT 0 /CUMM (0.0-0.2); ABSOLUTE EOSINOPHIL COUNT 0.2 /CUMM (0.0-0.7); ABSOLUTE GRANULOCYTE CT 3.9 /CUMM (1.4-6.5); ABSOLUTE LYMPH COUNT 2.3 /CUMM (1.2-3.4); ABSOLUTE MONOCYTE COUNT 0.5 /CUMM (0.10-0.60); BASOPHIL % 0.5 % (0.0-2.0); EOSINOPHIL % 3.3 % (0-5); GRANULOCYTE % 56.3 % (42.2-75.2); HEMATOCRIT 26.6 % (42-52); MEAN CORPUSCULAR HGB 28.1 PG (27.0-31.0); MEAN CORPUSCULAR HGB CONC 32.8 G/DL (33.0-37.0); MEAN CORPUSCULAR VOLUME 85.7 FL (80.0-94.0); MEAN PLATELET VOLUME 9.2 FL (7.4-10.4); PLATELET COUNT 187 /CUMM (130-400); WHITE BLOOD CELL COUNT 6.9 /CUMM (4.8-10.8)
--- NOTE | 2016-08-26 14:39 | PN- Att Addend ---
Attending MD Review Statement Attending Statement Attending MD Statement: examined this patient, discuss w/resident/PA/SUPPLY CHAIN LOGISTICS MANAGER, agreed w/resident/PA/SUPPLY CHAIN LOGISTICS MANAGER, reviewed EMR data (avail), discussed w/nursing, discussed w/ case mgmt Attending Assessment/Plan: Laboratory Tests 08/26/16 0945: Anion Gap 7, Estimated GFR 9 L, BUN/Creatinine Ratio 5.0 L, Glucose 155 H, Calcium 8.8, Phosphorus 4.7 H, Magnesium 2.0, Albumin 2.8 L, CBC w Diff NO MAN DIFF REQ, RBC 3.10 L, MCV 85.7, MCH 28.1, RDW 16.0 H, MPV 9.2, Gran % 56.3, Lymphocytes % 32.8, Monocytes % 7.1, Eosinophils % 3.3, Basophils % 0.5, Absolute Granulocytes 3.9, Absolute Lymphocytes 2.3, Absolute Monocytes 0.5, Absolute Eosinophils 0.2, Absolute Basophils 0, PUBS MCHC 32.8 L Vital Signs Date Time Temp Pulse Resp B/P Pulse O2 O2 Flow FiO2 Ox Delivery Rate 08/26 0655 98.5 81 18 142/78 97 Room Air 08/25 2236 98.1 77 20 120/68 99 Room Air 08/25 1454 98.1 88 20 120/77 96 Patient seen and examined at bedside. Discussed with patient the care plan. Patient underwent dialysis today. Patient staying afebrile and white count is also stable off antibiotics. Patient has finished his methadone taper. Patient is going to be discharge home today and case management and community mental health social worker can work with him for his needs.
[2016-08-26 14:54] VITALS: BP 150/80
[2016-08-26] MEDS ORDERED: CALCIUM ACETAT667 M2 PO (15:01)
--- NOTE | 2016-08-26 19:12 | NUR ---
Late Entry: Aware of patients discharge this afternoon. I met with Bertinjef early this morning, prior to hemodialysis. He was aware of and in agreement with plan for discharge today. Jorge, the social science professor at [facility] in [place] called me back yesterday. Magui's request for assistance in seeking outpatient substance abuse treatment is not a new request; she has been working with him on this for some time, but Magui does not follow up. Jorge reports that he has been a "no show" at previously scheduled intakes at [facility]; Magui denies this. I sat with him this morning before dialysis and we went to the website and I instructed Magui to call and make inquiries. When speaking with Jorge yesterday, one way to make this plan less cumbersome for the patient to navigate, would be to temporarily change his outpatient dialysis slot. I addressed this issue with Bertinjef, and he said he would consider it. Magui was in agreement to continue this conversation with Jorge. Case discussed with team at [facility]'s, and again with Dr. Figueroa.
== END 2016-08-26 16:48 | disposition home health service (06) | DRG 177 ==
LOC: ENRESERVDT → ENRESERVTM → ERH 16:51 → ERHI 20:31 → 2NA 20:31
PROVIDERS: Emergency Medicine; Internal Medicine; Internal Medicine Hematology & Oncology; Internal Medicine Interventional Cardiology; Internal Medicine Nephrology; Student in an Organized Health Care Education/Training Program; ADMIT Student in an Organized Health Care Education/Training Program
PROC: 5A1D60Z (ICD-10-PCS; principal; 2016-08-21)
PROC: 0H9KXZX Drainage of Right Lower Leg Skin, External Approach, Diagnostic (ICD-10-PCS; 2016-08-24)
DX: J15.6 Pneumonia due to other Gram-negative bacteria (principal); N18.6 End stage renal disease; E11.22 Type 2 diabetes mellitus with diabetic chronic kidney disease; I12.0 Hypertensive chronic kidney disease with stage 5 chronic kidney disease or end stage renal disease; E11.65 Type 2 diabetes mellitus with hyperglycemia; F11.20 Opioid dependence, uncomplicated; Z99.2 Dependence on renal dialysis; Z89.512 Acquired absence of left leg below knee; Z89.511 Acquired absence of right leg below knee; F17.200 Nicotine dependence, unspecified, uncomplicated; I73.9 Peripheral vascular disease, unspecified; Z79.4 Long term (current) use of insulin; E78.5 Hyperlipidemia, unspecified; K21.9 Gastro-esophageal reflux disease without esophagitis; I25.2 Old myocardial infarction; D50.9 Iron deficiency anemia, unspecified; M25.862 Other specified joint disorders, left knee; R07.9 Chest pain, unspecified
CPT/HCPCS: 2NAP; 2NASP; 87070; 87075; 36415; 73562-LT; 76881; 80307; 81001; 82436; 87040; 87086; 87389; 87449; 87450; 87804; 87804-59; 88305; 93005; 93010; 93306; 96374; 96375; 99232; J0696; J0713; J0885; J1644; J1815; J2405; J3370; J3490; J7060